=== PATIENT | male | born 1960 | race Caucasian/White ===

== ENCOUNTER → 2017-08-20 09:26 | Outpatient (CLI) | payer BC, SELFPAY | PROVIDERS: Visit Provider Podiatrist | DX: M79.671 Pain in right foot (principal); M79.672 Pain in left foot ==

== ENCOUNTER → 2017-09-25 11:26 | Outpatient (REF) | payer BC, SELFPAY ==
[2017-09-27 14:46] LABS: PSA, Free 0.26 ng/mL; Prostate Specific Ag 1.5 ng/mL (0.0-4.0)
== END ==
LOC: LAB 11:26
PROVIDERS: Visit Provider Emergency Medicine
DX: N40.0 Benign prostatic hyperplasia without lower urinary tract symptoms (principal)
CPT/HCPCS: 84153; 84154

== ENCOUNTER → 2018-04-25 09:44 | Outpatient (CLI) | payer BC, SELFPAY ==
--- NOTE | 2018-04-25 09:47 | US_ITS ---
US Arterial Ankle Brachial Ind History: ITS.REASON: claudication right leg pain, current smoker, claudication ORDERING PHYSICIAN: Mariano Cheng MD PATIENT AGE: 57 years TECHNIQUE: Segmental pressures obtained of both right and left leg. These are compared to brachial blood pressure to yield index at each level sampled including summary NEETU. The data sheets from the procedure are available in PACS FINDINGS Rest study only performed today No prior studies available for comparison. Blood pressures reported are in millimeters mercury. RIGHT LEG NEETU = .8. RIGHT LEG TBI=.5 Brachial BP: 163 Thigh BP: 117 Calf BP: 119 Ankle PT: 131 Ankle DP : 116 Digit =78 LEFT LEG NEETU = .9 LEFT LEG TBI= .5 Brachial BPD: 174 Thigh BP: 146 Calf BP: 146 Ankle PT:159 Ankle DP: 153 Digit = 82 Pulses and waveforms: Diminished waveforms impulses of the right leg IMPRESSION: 1. The right NEETU is slightly low at 0.8 indicating mild peripheral vascular disease. The left NEETU is within normal limits. 2. Low bilateral TBIs suggesting small vessel disease
== END ==
PROVIDERS: PCP Emergency Medicine; Visit Provider Internal Medicine
DX: I70.213 Atherosclerosis of native arteries of extremities with intermittent claudication, bilateral legs (principal)
CPT/HCPCS: 93922

== ENCOUNTER → 2018-05-17 06:21 | Outpatient (CLI) | payer BC, SELFPAY ==
--- NOTE | 2018-05-17 06:22 | NM_ITS ---
CARDIOLITE SPECT MYOCARDIAL PERFUSION SCAN, REST AND STRESS: EXERCISE STRESS [facility] REVIEW QGS EF AND WALL MOTION EVALUATION: QPS - PERFUSION EVALUATION HISTORY: sob..fatigue DOSE: 10.03 mCi technetium 99m mibi intravenously at rest followed by 30.7 mCi technetium 99m mibi following the intravenous ministration of 0.4 mg of Lexiscan. Resting blood pressure is 186/96. Stress blood pressure 171/66. FINDINGS: Ejection fraction is calculated to be 52%. Uniform myocardial activity at both stress and rest gated images calculated ejection fraction of 52% wall motion IMPRESSION: No scintigraphic evidence of Lexiscan-induced myocardial ischemia normal ejection fraction normal wall motion
--- NOTE | 2018-05-17 06:22 | XR_ITS ---
XR chest 2V HISTORY: Shortness of breath ITS.REASON: . ORDERING PHYSICIAN: Mariano Cheng MD PATIENT AGE: 57 years COMPARISON: None FINDINGS: Unremarkable heart size. Hyperinflation with attenuation of the peripheral pulmonary vessels consistent with COPD. Calcified granuloma is present in the left lower lobe. There is minimal blunting of the left CP angle. No acute bony anomalies. IMPRESSION: COPD with minimal blunting of left CP angle
--- NOTE | 2018-05-17 08:43 | HMH.ITSHM ---
Current Home Medications as stated by this patient Thomas Weller or treasury representative. [] gabapentin trazodone amiodarone albuterol fluticasone
[2018-05-17 10:50] VITALS: PULSE 79
== END ==
PROVIDERS: PCP Emergency Medicine; Visit Provider Internal Medicine
DX: I73.9 Peripheral vascular disease, unspecified (principal); R00.0 Tachycardia, unspecified; R06.00 Dyspnea, unspecified; R68.89 Other general symptoms and signs; R94.31 Abnormal electrocardiogram [ECG] [EKG]; Z79.899 Other long term (current) drug therapy
CPT/HCPCS: 71046; 78452; 93017; 93306; 94060; 94640; 94726; 94729; A9502; J2785

== ENCOUNTER → 2018-07-15 13:22 | Outpatient (CLI) | payer BC, SELFPAY | PROVIDERS: Visit Provider Emergency Medicine | DX: L98.9 Disorder of the skin and subcutaneous tissue, unspecified (principal) | CPT/HCPCS: 87070; 87077; 87186; 87205 ==

== ENCOUNTER → 2019-02-03 13:42 | Outpatient (CLI) | payer BC, SELFPAY ==
[2019-02-03 14:03] LABS: Basophils % 0.4 % (0.1-2.0); Eosinophils # 0.2 K/mm3 (0.0-0.4); Eosinophils % 2.3 % (0.1-12.0); Hematocrit 45.7 % (42.0-52.0); Hemoglobin 14.6 g/dL (14.1-18.0); Lymphocytes # 1.7 K/mm3 (0.7-4.5); Lymphocytes % 24.3 % (10-50); Mean Corpuscular HGB Conc 31.8 g/dL (31.8-35.4); Mean Corpuscular Hemoglobin 31.8 pg (27.0-31.2); Mean Corpuscular Volume 99.9 fl (80-94); Mean Platelet Volume 8.2 fl (7.4-10.4); Monocytes # 0.6 K/mm3 (0.1-1.0); Monocytes % 8.3 % (1.7-9.3); Neutrophils # 4.5 K/mm3 (1.8-7.8); Neutrophils % 64.7 % (37.0-80.0); Platelet Count 283 K/mm3 (142-424); Red Blood Count 4.58 M/mm3 (4.60-6.20); Red Cell Distribution Width 13.9 % (11.5-17.5); White Blood Count 6.9 K/mm3 (4.8-10.8)
[2019-02-03 15:01] LABS: Alanine Aminotransferase 23 U/L (12-78); Albumin Level 4.2 gm/dL (3.4-5.0); Albumin/Globulin Ratio 1.1 (1.1-1.8); Alkaline Phosphatase 58 U/L (46-116); Anion Gap 19.6 mEq/L (5-15); Aspartate Amino Transferase 23 U/L (15-37); Bilirubin,Total 0.4 mg/dL (0.2-1.0); Blood Urea Nitrogen 15 mg/dL (7-18); Calcium 9.5 mg/dL (8.5-10.1); Carbon Dioxide 24 mmol/L (21.0-32.0); Chloride 98 mmol/L (98-107); Chol/HDL Ratio 4.3 (1-3.5); Cholesterol 293 mg/dL (140-200); Estimated Glomerular Filt Rate 62 ml/min (>60); Free T4 (Free Thyroxine) 1.27 ng/dl (0.76-1.46); GFR (African American) 75 ML/MIN (>60); Glucose 75 mg/dL (74-106); HDL Cholesterol 68 mg/dL (27-67); LDL Cholesterol 191 mg/dL (0-130); Potassium 4.6 mmoL/L (3.5-5.1); Sodium 137 mmol/L (136-145); Thyroid Stimulating Hormone 1.55 uIU/ml (0.358-3.740); Total Protein,Serum 8.2 gm/dL (6.4-8.2); Triglycerides 170 mg/dL (30-200); VLDL Cholesterol 34 mg/dL (0-40)
== END ==
PROVIDERS: Visit Provider Emergency Medicine
DX: I10 Essential (primary) hypertension (principal)
CPT/HCPCS: 80053; 80061; 84439; 84443; 85025

== ENCOUNTER → 2019-03-28 13:24 | Outpatient (CLI) | payer BC, SELFPAY ==
[2019-03-28 15:27] LABS: Amphetamine/Metha Screen,Urine Negative ng/mL (<1000); Barbiturates Screen,Urine Negative ng/mL (<200); Benzodiazepines Screen,Urine Negative ng/mL (<200); Cannabinoid Screen,Urine Negative ng/mL (<50); Cocaine Screen,Urine Negative ng/mL (<300); Methadone Screen,Urine Negative ng/mL (<300); Opiate Screen,Urine Negative ng/mL (<300); Phencyclidine Screen,Urine Negative ng/mL (<25)
[2019-03-29 18:50] LABS: Vitamin B12 363 pg/mL (232-1245)
[2019-03-29 18:50] LABS: Folate 10.8 ng/mL (>3.0)
== END ==
PROVIDERS: Visit Provider Emergency Medicine
DX: M54.16 Radiculopathy, lumbar region (principal)
CPT/HCPCS: 80305; 82607; 82746

== ENCOUNTER → 2019-05-12 07:41 | Outpatient (CLI) | payer BC, SELFPAY ==
--- NOTE | 2019-05-12 07:43 | US_ITS ---
APPROVED REPORT Exam Type: Lower Extremity Segmental Pressures Digital Media Producer: Marlene Dudley RVT Indications Claudication: Bilaterally Current Smoker Risk Factors Hypertension Current Smoker Pressures/Indices Right Indices Left Indices Brachial 130.00 mmHg Brachial 126.00 mmHg Low Thigh 108.00 mmHg 0.83 Low Thigh 116.00 mmHg 0.89 Calf 92.00 mmHg 0.71 Calf 108.00 mmHg 0.83 Ankle(PT) 84.00 mmHg 0.65 Ankle(PT) 90.00 mmHg 0.69 Ankle(DP) 112.00 mmHg 0.86 Ankle(DP) 119.00 mmHg 0.92 Digit 51.00 mmHg 0.39 Digit 61.00 mmHg 0.47 Findings RT NEETU:0.65 LT NEETU:0.69 RT TBI:0.39 LT TBI:0.47 DECREASED WAVEFORMS RT THIGH AND ANKLE. DECREASED WAVEFORMS LT ANKLE. NORMAL PULSES BILATERALLY. Conclusion DECREASED WAVEFORMS RT THIGH AND ANKLE. DECREASED WAVEFORMS LT ANKLE. NORMAL PULSES BILATERALLY. Low NEETU bilaterally consistent with Moderate arerial disease Electronically signed by : Abisai Barnett MD 05/12/2019 17:05:10
--- NOTE | 2019-05-12 07:48 | CT_ITS ---
PROCEDURE: CT CHEST WO CON CLINICAL INDICATION: tobacco use and amio therapy Cough, current smoker, congestion, shortness of COMPARISON: CXR2V XR chest 2V from 05/17/2018 TECHNIQUE: Axial images obtained with sagittal and coronal reformats. All CT scans at the facility use one or more dose reduction, viz: automated exposure control, ma/kV adjustment per patient size (including targeted exams where dose is matched to indication, i.e. head), or iterative reconstruction technique. FINDINGS: There are coronary artery calcifications. Normal heart size. No mediastinal or hilar mass or adenopathy. Panlobular emphysema with COPD and scattered areas of scarring. Calcified granuloma is present in the left lower lobe. No suspicious pulmonary nodules are evident. No central obstructing lesions. There is some mild pulmonary fibrotic changes in the right upper lobe laterally and inferiorly. Scarring noted in the right lung base. There are degenerative changes in the thoracic spine with minimal loss of height anteriorly of T10 and to lesser degree at T11 probably chronic. IMPRESSION: 1. Cyst panlobular emphysema/COPD with scattered areas of scarring. 2. No suspicious pulmonary nodule apparent. No lobar consolidation or collapse Dictated by: Abisai Barnett MD 05/13/2019 12:44 Electronically signed by Abisai Barnett MD in [place] 05/13/2019 12:44
--- NOTE | 2019-05-12 07:48 | US_ITS ---
PROCEDURE: US ABD. AORTA SCREENING CLINICAL INDICATION: to rule out AAA Screening for abdominal aortic aneurysm COMPARISON: No exams were available for comparison FINDINGS: Normal caliber of the abdominal aorta measuring up to 2 cm. Unremarkable common iliacs. IMPRESSION: No evidence of abdominal aortic aneurysm Dictated by: Abisai Barnett MD 05/13/2019 06:59 Electronically signed by Abisai Barnett MD in [place] 05/13/2019 06:59
== END ==
PROVIDERS: PCP Emergency Medicine; Visit Provider Internal Medicine Cardiovascular Disease
DX: I73.9 Peripheral vascular disease, unspecified (principal); E78.5 Hyperlipidemia, unspecified; I10 Essential (primary) hypertension; J44.9 Chronic obstructive pulmonary disease, unspecified; R06.09 Other forms of dyspnea; Z72.0 Tobacco use
CPT/HCPCS: 71250; 76705; 93923

== ENCOUNTER → 2020-10-19 14:47 | Outpatient (CLI) | payer BC, SELFPAY ==
[2020-10-19 15:06] LABS: Alanine Aminotransferase 24 U/L (12-78); Albumin Level 4.8 g/dl (3.5-5.0); Albumin/Globulin Ratio 1.5 (1.1-1.8); Alkaline Phosphatase 69 U/L (38-126); Anion Gap 15.2 mEq/L (5-15); Aspartate Amino Transferase 29 U/L (17-59); Bilirubin,Total 0.9 mg/dl (0.2-1.3); Blood Urea Nitrogen 28 mg/dl (9-20); Calcium 9.5 mg/dl (8.4-10.2); Carbon Dioxide 21 mmol/L (22.0-30.0); Chloride 110 mmol/L (98-107); Chol/HDL Ratio 6.3 (1-3.5); Cholesterol 270 mg/dl (140-200); Estimated Glomerular Filt Rate 52 ml/min (>60); GFR (African American) 62 ML/MIN (>60); Globulin 3.2 g/dL (1.3-3.2); Glucose 92 mg/dl (74-100); HDL Cholesterol 43 mg/dl (40-60); Potassium 5.2 mmoL/L (3.5-5.1); Sodium 141 mmol/L (136-145); Triglycerides 484 mg/dl (30-150)
[2020-10-19 15:11] LABS: Basophils # 0.1 K/mm3 (0-0.2); Basophils % 0.7 % (0.1-2.0); Eosinophils # 0.3 K/mm3 (0.0-0.4); Eosinophils % 3.2 % (0.1-12.0); Hematocrit 48.7 % (42.0-52.0); Hemoglobin 15.5 g/dL (14.1-18.0); Lymphocytes # 2.2 K/mm3 (0.7-4.5); Lymphocytes % 25.9 % (10-50); Mean Corpuscular HGB Conc 31.9 g/dL (31.8-35.4); Mean Corpuscular Hemoglobin 30.6 pg (27.0-31.2); Mean Corpuscular Volume 95.8 fl (80-94); Mean Platelet Volume 8.7 fl (7.4-10.4); Monocytes # 0.7 K/mm3 (0.1-1.0); Monocytes % 8.1 % (1.7-9.3); Neutrophils # 5.2 K/mm3 (1.8-7.8); Neutrophils % 62.1 % (37.0-80.0); Platelet Count 264 K/mm3 (142-424); Red Blood Count 5.08 M/mm3 (4.60-6.20); Red Cell Distribution Width 13.2 % (11.5-17.5); White Blood Count 8.3 K/mm3 (4.8-10.8)
[2020-10-19 15:16] LABS: Direct LDL Cholesterol 138.23 mg/dL (100-129)
[2020-10-19 15:23] LABS: Free T4 (Free Thyroxine) 1.37 ng/dl (0.78-2.19)
[2020-10-19 15:38] LABS: Thyroid Stimulating Hormone 2.58 uIU/mL (0.465-4.68)
[2020-10-19 16:16] LABS: Prostate Specific Ag Screen 2.5 ng/ml (0.0-4.0)
== END ==
PROVIDERS: Visit Provider Emergency Medicine
DX: G62.9 Polyneuropathy, unspecified (principal); I10 Essential (primary) hypertension; E78.5 Hyperlipidemia, unspecified; J44.9 Chronic obstructive pulmonary disease, unspecified; E66.3 Overweight; Z68.30 Body mass index [BMI] 30.0-30.9, adult; F17.210 Nicotine dependence, cigarettes, uncomplicated; Z12.5 Encounter for screening for malignant neoplasm of prostate
CPT/HCPCS: 80053; 80061; 84439; 84443; 85025; G0103

== ENCOUNTER → 2021-01-14 09:51 | Outpatient (CLI) | payer BC, SELFPAY ==
--- NOTE | 2021-01-14 09:55 | US_ITS ---
APPROVED REPORT Exam Type: Lower Extremity Segmental Pressures Miniature Set Builder: Marlene Dudley RVT Indications Current Smoker CLAUDICATION Risk Factors History of PAD: Bilaterally Hypertension Hyperlipidemia Current Smoker Pressures/Indices Right Indices Left Indices Brachial 137.00 mmHg Brachial 142.00 mmHg Low Thigh 89.00 mmHg 0.63 Low Thigh 109.00 mmHg 0.77 Calf 76.00 mmHg 0.54 Calf 94.00 mmHg 0.66 Ankle(PT) 96.00 mmHg 0.68 Ankle(PT) 107.00 mmHg 0.75 Ankle(DP) 84.00 mmHg 0.59 Ankle(DP) 96.00 mmHg 0.68 Digit 67.00 mmHg 0.47 Digit 66.00 mmHg 0.46 Findings RT NEETU:0.68 LT NEETU:0.75 RT TBI:0.47 LT TBI:0.46 DAMPANED WAVEWFORMS BILATERAL DAMPANED PULSES BILATERAL LOW NEETU'S BILATERALLY CONSISTENT WITH MODERATE ARTERIAL DISEASE. Conclusion RT NEETU:0.68 LT NEETU:0.75 RT TBI:0.47 LT TBI:0.46 DAMPANED WAVEWFORMS BILATERAL DAMPANED PULSES BILATERAL LOW NEETU'S BILATERALLY CONSISTENT WITH MODERATE ARTERIAL DISEASE. Electronically signed by : Abisai Barnett MD 01/14/2021 14:21:02
== END ==
PROVIDERS: PCP Emergency Medicine; Visit Provider Emergency Medicine
DX: I73.9 Peripheral vascular disease, unspecified (principal)
CPT/HCPCS: 93923

== ENCOUNTER → 2021-02-08 18:59 | Outpatient (CLI) | payer BC, SELFPAY ==
[2021-02-08 20:49] LABS: Amphetamine/Metha Screen,Urine Negative ng/ml (<1000)
[2021-02-08 20:50] LABS: Barbiturates Screen,Urine Negative ng/ml (<200); Benzodiazepines Screen,Urine Negative ng/ml (<200)
[2021-02-08 20:51] LABS: Cannabinoid Screen,Urine Negative ng/ml (<50)
[2021-02-08 20:52] LABS: Cocaine Screen,Urine Negative ng/ml (<300); Methadone Screen,Urine Negative ng/ml (<300)
[2021-02-08 20:53] LABS: Opiate Screen,Urine Negative ng/ml (<300)
[2021-02-08 20:54] LABS: Phencyclidine Screen,Urine Negative ng/ml (<25)
== END ==
PROVIDERS: Visit Provider Emergency Medicine
DX: Z79.899 Other long term (current) drug therapy (principal)
CPT/HCPCS: 80305

== ENCOUNTER 2021-03-01 08:28 | Day surgery (SDC) | payer BC, SELFPAY ==
[2021-03-01] VITALS (14 sets, daily range): BP systolic 81–147; BP diastolic 47–90; PULSE 75–88; RESP 18–19; O2SAT 90–100; BMI 30.4
--- NOTE | 2021-03-01 08:39 | IR_ITS ---
APPROVED REPORT Patient Location: Outpatient Assembler Dc Field Yoke: DYLON Smith RT (R) PROCEDURES Right radial artery access Catheter placed in the right common iliac artery Right common iliac artery selective angiogram Catheter placed in left common iliac artery Left common iliac artery selective angiogram Bare-metal stent deployment in right common iliac artery extending into the right external iliac artery Catheter placement in the abdominal aorta Bilateral iliofemoral off INDICATION Peripheral artery disease, [place] claudication class III, Atherosclerosis of the right common and right external iliac artery, Abnormal NEETU Informed consent was obtained prior to the procedure. COMPLICATIONS NONE Estimated Blood Loss: LESS THAN 10 ML TECHNIQUE 1% lidocaine used to anesthetize the right anterior aspect of the right wrist. The right radial artery was accessed via the central technique and an arterial cocktail using 5000U heparin, 2.5 mg verapamil, 1mg lidocaine and 800mcg nitroglycerin into the right radial sheath intra-arterially. A PV multi curve catheter was then placed into the left common iliac artery via the right radial sheath and iliofemoral angiography was performed. This procedure was repeated in the right common iliac artery. At the end the diagnostic angiogram additional heparin was administered and a long 6 Turkmen Terumo sheath was placed in the proximal right common iliac artery. An 8 mm x 57 mm balloon mounted stent was deployed at 12 abel reducing the severe stenosis to 0%. Excellent angiographic results were obtained. At the end of the procedure the apparatus was pulled back to the distal abdominal aorta and bilateral iliofemoral runoff was performed. At the end of procedure the apparatus was removed the sheath was removed and hemostasis was achieved using TR banding patient was transferred the postop already in stable condition ANGIOGRAPHIC RESULTS The distal abdominal aorta has mild atheromatous plaque. The right common iliac artery is patent in the proximal segment and has a distal 80% stenosis which extends into the proximal right external iliac artery. The right internal iliac artery is patent. The right common femoral artery is widely patent. The right profunda femoris artery is patent. The right superficial femoral artery is widely patent. The right popliteal artery is widely patent. There appears to be three-vessel runoff below the knee. The distal vessels were not viewed however the proximal portion of the anterior posterior tibialis arteries and peroneal artery on the right side were visualized and patent The left common iliac artery is widely patent with mild 10 to 20% atheromatous plaque. The left internal iliac artery is patent. The left external iliac artery has 30 to 40% stenosis. The left common femoral artery is patent. The left profunda femoris artery is patent. Left superficial femoral artery is widely patent with mild atheromatous plaque at Marshal's canal. The left popliteal artery has mild atheromatous plaque. Below the knee there appears to be two-vessel runoff on the left side IMPRESSION Peripheral artery disease as described above Successful stenting of the distal right common iliac artery extending into the proximal right external iliac artery PLAN 1. Aspirin and Plavix followed by Xarelto 2.5 mg twice daily in the next 2 to 5 days after discharge 2. Physical therapy 3. LDL less than 55 4. Aggressive risk factor modification Electronically signed by : Mariano Cheng MD 03/09/2021 12:32:25
[2021-03-01 09:23] LABS: Coronavirus 19, PCR Not Detected (NotDetected); Influenza A, PCR Not Detected (NotDetected); Influenza B, PCR Not Detected (NotDetected)
[2021-03-01 09:26] LABS: Basophils # 0.1 K/mm3 (0-0.2); Basophils % 1.1 % (0.1-2.0); Eosinophils # 0.3 K/mm3 (0.0-0.4); Eosinophils % 3.1 % (0.1-12.0); Hematocrit 46.5 % (42.0-52.0); Hemoglobin 15.3 g/dL (14.1-18.0); Lymphocytes # 2.3 K/mm3 (0.7-4.5); Lymphocytes % 28.7 % (10-50); Mean Corpuscular HGB Conc 32.8 g/dL (31.8-35.4); Mean Corpuscular Hemoglobin 31.2 pg (27.0-31.2); Mean Corpuscular Volume 95.2 fl (80-94); Mean Platelet Volume 9.7 fl (7.4-10.4); Monocytes # 0.6 K/mm3 (0.1-1.0); Monocytes % 7.4 % (1.7-9.3); Neutrophils # 4.8 K/mm3 (1.8-7.8); Neutrophils % 59.7 % (37.0-80.0); Platelet Count 277 K/mm3 (142-424); Red Blood Count 4.88 M/mm3 (4.60-6.20); Red Cell Distribution Width 12.9 % (11.5-17.5); White Blood Count 8.1 K/mm3 (4.8-10.8)
[2021-03-01 09:34] LABS: Anion Gap 16.3 mEq/L (5-15); Blood Urea Nitrogen 18 mg/dl (9-20); Calcium 9.2 mg/dl (8.4-10.2); Carbon Dioxide 18 mmol/L (22.0-30.0); Chloride 106 mmol/L (98-107); Creatinine Clearance Estimated 59 mL/min (50-200); Estimated Glomerular Filt Rate 44 ml/min (>60); GFR (African American) 53 ML/MIN (>60); Glucose 93 mg/dl (74-100); Potassium 5.3 mmoL/L (3.5-5.1); Sodium 135 mmol/L (136-145)
[2021-03-01 14:11] LABS: CATHL Activated Clotting Time > 400 SEC (74-125)
--- NOTE | 2021-03-01 14:29 | HMH.PHACLD ---
Thomas Weller has received discharge medication counseling on the following medications: PLAVIX 75MG ASPIRIN 81MG SIMVASTATIN 20MG PATIENT ALREADY TAKING ASPIRIN AND SIMVASTATIN. COUNSELED ON PLAVIX. PATIENT RECEIVED PERIPHERAL STENT, THEREFORE PORTILLO/ARB AND BETA YARI ARE NOT NEEDED. PATIENT VERBALIZED UNDERSTANDING AND HAD NO QUESTIONS AT THIS TIME. -GENO CORRALES, PHARMD
== END 2021-03-01 14:26 | disposition home or self-care (01) ==
LOC: CATHLAB 08:30
PROVIDERS: PCP Emergency Medicine; Visit Provider Internal Medicine
DX: I70.223 Atherosclerosis of native arteries of extremities with rest pain, bilateral legs (principal); I48.91 Unspecified atrial fibrillation; I25.10 Atherosclerotic heart disease of native coronary artery without angina pectoris; I10 Essential (primary) hypertension; F17.210 Nicotine dependence, cigarettes, uncomplicated; Z79.01 Long term (current) use of anticoagulants; Z79.899 Other long term (current) drug therapy; I77.1 Stricture of artery; I70.0 Atherosclerosis of aorta; Z20.822 Contact with and (suspected) exposure to COVID-19
CPT/HCPCS: 36247; 37221; 75710; 80048; 85025; 85347; 99152; 99153; C1725; C1769; C1876; C9803; J1644; Q9966; U0003; U0005

== ENCOUNTER → 2021-04-20 10:19 | Outpatient (CLI) | payer BC, SELFPAY | PROVIDERS: PCP Emergency Medicine; Visit Provider Urology | DX: R06.00 Dyspnea, unspecified (principal); R68.89 Other general symptoms and signs; I73.9 Peripheral vascular disease, unspecified | CPT/HCPCS: 93306 ==

== ENCOUNTER → 2021-06-03 17:24 | Outpatient (CLI) | payer BC, SELFPAY ==
[2021-06-03 19:04] LABS: Amphetamine/Metha Screen,Urine Negative ng/ml (<1000); Barbiturates Screen,Urine Negative ng/ml (<200)
[2021-06-03 19:06] LABS: Benzodiazepines Screen,Urine Negative ng/ml (<200)
[2021-06-03 19:07] LABS: Cannabinoid Screen,Urine Negative ng/ml (<50)
[2021-06-03 19:08] LABS: Cocaine Screen,Urine Negative ng/ml (<300); Methadone Screen,Urine Negative ng/ml (<300)
[2021-06-03 19:09] LABS: Opiate Screen,Urine Negative ng/ml (<300)
[2021-06-03 19:10] LABS: Phencyclidine Screen,Urine Negative ng/ml (<25)
== END ==
PROVIDERS: Visit Provider Emergency Medicine
DX: Z79.899 Other long term (current) drug therapy (principal)
CPT/HCPCS: 80305

== ENCOUNTER → 2021-09-07 12:34 | Outpatient (CLI) | payer BC, SELFPAY ==
[2021-09-07 13:30] VITALS: PULSE 92; PULSE 95
--- NOTE | 2021-09-07 14:31 | CT_ITS ---
FINAL REPORT CLINICAL HISTORY: CURRENT SMOKER COMPARISON: May 12, 2019 FINDINGS: Low-Dose Chest CT CTDI vol (mGy): 2.90 DLP (mGy-cm): 105.51 Axial images were obtained from the lung apex to the mid abdomen by computed tomography. Low-dose protocol was utilized. FINDINGS: CHEST: There is no axillary adenopathy. There is no hilar or mediastinal adenopathy. The heart is proper size. There is no pericardial or pleural effusion. Limited images of the upper abdomen are unremarkable. Lung window images demonstrate no suspicious infiltrate or nodule. There is calcified granuloma in the left lower lobe. There are moderate changes of central lobular emphysema in the upper lobes. There is scarring at the right lung base. IMPRESSION: No suspicious infiltrate or nodule identified. S modifier: Moderate changes of centrilobular emphysema. Lung RADS category 1S. Recommend 12 month follow-up low-dose chest CT. Reviewed, Interpreted and Dictated by Floyd Dutta MD Transcribed by Mesha Bill Authenticated by Floyd Dutta MD on 09/07/2021 04:39:00 PM [facility]
== END ==
PROVIDERS: PCP Emergency Medicine; Visit Provider Internal Medicine Pulmonary Disease
DX: Z87.891 Personal history of nicotine dependence (principal); Z12.2 Encounter for screening for malignant neoplasm of respiratory organs; R06.00 Dyspnea, unspecified
CPT/HCPCS: 71271; 94060; 94618; 94640; 94727; 94729; 94762

== ENCOUNTER → 2021-11-30 07:04 | Outpatient (CLI) | payer BC, SELFPAY ==
[2021-11-29 20:01] LABS: Amphetamine/Metha Screen,Urine Negative ng/ml (<1000); Barbiturates Screen,Urine Negative ng/ml (<200)
[2021-11-29 20:03] LABS: Benzodiazepines Screen,Urine Negative ng/ml (<200)
[2021-11-29 20:04] LABS: Cannabinoid Screen,Urine Positive ng/ml (<50); Cocaine Screen,Urine Negative ng/ml (<300)
[2021-11-29 20:05] LABS: Methadone Screen,Urine Negative ng/ml (<300)
[2021-11-29 20:06] LABS: Opiate Screen,Urine Negative ng/ml (<300); Phencyclidine Screen,Urine Negative ng/ml (<25)
== END ==
PROVIDERS: PCP Emergency Medicine; Visit Provider Emergency Medicine
DX: G62.9 Polyneuropathy, unspecified (principal); M54.50 Low back pain, unspecified
CPT/HCPCS: 80305

== ENCOUNTER → 2021-12-28 09:49 | Outpatient (CLI) | payer BC, SELFPAY | PROVIDERS: PCP Emergency Medicine; Visit Provider Internal Medicine Gastroenterology | DX: Z01.812 Encounter for preprocedural laboratory examination (principal); Z20.822 Contact with and (suspected) exposure to COVID-19; Z12.11 Encounter for screening for malignant neoplasm of colon | CPT/HCPCS: C9803; U0003; U0005 ==

== ENCOUNTER 2021-12-29 09:24 | Day surgery (SDC) | payer BC, SELFPAY ==
[2021-12-27 10:17] VITALS: BMI 29.6
[2021-12-29] VITALS (7 sets, daily range): BP systolic 95–138; BP diastolic 56–85; PULSE 80–91; RESP 18–19; TEMP 36.4–36.6; O2SAT 92–98
--- NOTE | 2021-12-29 09:54 | P.PN_ITS ---
[facility] Anesthesia Checklist - Patient Identification Patient Identification: Arm Band - Structural Data Admitted From: Home Planned Operative Procedure/s: Colonoscopy Consent for Planned Operative Procedure(s) Verified: Yes - NPO Status Verified Time NPO: 00:00 - Airway Assessment C-Spine Mobility Assessed: Yes TMJ Mobility Assessed: Yes Dentition: Poor Dentition - Neurological Assessment Level of Consciousness: Awake Hx Seizures: No Numbness or tingling in extremities: No - Anesthesia Plan Anesthesia Risk discussed: Yes Anesthesia Plan: Verified ASA Class: III Anesthesia Type: MAC [facility] History I have reviewed the patient's past medical history: Yes Medical History: Reports:: Atrial Fibrillation, Chronic Obstructive Pulmonary Disease (COPD), Coronary Artery Disease, Gastroesophageal Reflux Disease(GERD), Hyperlipidemia, Hypertension Denies:: Cancer, Diabetes Mellitus Type 1, Diabetes Mellitus Type 2, Internal Pacemaker, MRSA, Seizures *Have you ever received a pneumonia vaccine?: Yes *Have you received a flu vaccine this season?: Yes Anesthesia experience/problems:: None Other Surgeries: Yes: No Previous Surgery, Cardiac Catheterization, Coronary Stent. No: Pacemaker Amputation: No Fractures: No - *Social History Last grade of school completed: 9th or 10th Smoking Status: Current every day smoker Tobacco Type: cigarettes # Packs/Day (cigarettes): 1 Alcohol Intake: former Alcohol Intake Frequency:: a few times a week Substance Use Type: denies use *Occupational Status:: disabled Housing: house Household Members: significant other *Travel in the last 8 weeks: None Family Hx:: Heart Attack
--- NOTE | 2021-12-29 10:23 | HMH.SCOPE ---
- Procedure: Date: 12/29/21 Patient Date of :: 1960 Procedure Performed:: Screening colonoscopy Indications:: At appropriate age for colon screening exam Performing Provider:: Yvette Colvin MD Referring Provider:: Giovanny Gardner Sedation:: Propofol Procedure:: After placing the patient in the left lateral decubitus position, the colonoscopy was gently inserted into the rectum and under direct visualization advanced to the cecum which was identified by transillumination in the right lower quadrant, identification of the ileocecal valve, appendiceal orifice, and cecal strap. Color, texture, mucosa, and anatomy of the colon were carefully examined with the scope. Findings:: Anal canal: normal Rectum: normal Sigmoid colon: normal without polyps or inflammatory changes Descending colon: normal without polyps or inflammatory changes Splenic flexure: normal Transverse colon: normal without polyps or inflammatory changes Hepatic flexure: normal Ascending colon: normal without polyps or inflammatory changes Cecum: normal Terminal ileum: not visualized Impression: Normal colonoscopy examination Recommendations:: Repeat examination in about TEN years or so, sooner if clinically indicated Complications:: None Estimated blood obtained (mL): 0
== END 2021-12-29 11:01 | disposition home or self-care (01) ==
LOC: OUTP 09:27
PROVIDERS: PCP Emergency Medicine; Visit Provider Internal Medicine Gastroenterology
PROC: 0DJD8ZZ Inspection of Lower Intestinal Tract, Via Natural or Artificial Opening Endoscopic (ICD-10-PCS; CPT 45378; principal; 2021-12-29 09:30)
DX: Z12.11 Encounter for screening for malignant neoplasm of colon (principal); I48.91 Unspecified atrial fibrillation; K21.9 Gastro-esophageal reflux disease without esophagitis; J44.9 Chronic obstructive pulmonary disease, unspecified; I25.10 Atherosclerotic heart disease of native coronary artery without angina pectoris; E78.5 Hyperlipidemia, unspecified; Z72.0 Tobacco use; Z79.899 Other long term (current) drug therapy
CPT/HCPCS: 45378

== ENCOUNTER → 2022-01-03 06:50 | Outpatient (CLI) | payer BC, SELFPAY ==
[2022-01-03 20:36] LABS: Amphetamine/Metha Screen,Urine Negative ng/ml (<1000)
[2022-01-03 20:38] LABS: Barbiturates Screen,Urine Negative ng/ml (<200)
[2022-01-03 20:39] LABS: Benzodiazepines Screen,Urine Negative ng/ml (<200); Cannabinoid Screen,Urine Negative ng/ml (<50)
[2022-01-03 20:40] LABS: Cocaine Screen,Urine Negative ng/ml (<300); Methadone Screen,Urine Negative ng/ml (<300)
[2022-01-03 20:41] LABS: Opiate Screen,Urine Negative ng/ml (<300)
[2022-01-03 20:42] LABS: Phencyclidine Screen,Urine Negative ng/ml (<25)
== END ==
PROVIDERS: PCP Emergency Medicine; Visit Provider Emergency Medicine
DX: M79.2 Neuralgia and neuritis, unspecified (principal)
CPT/HCPCS: 80305

== ENCOUNTER → 2022-03-01 14:00 | Outpatient (CLI) | payer BC, SELFPAY ==
[2022-03-01 19:14] LABS: Amphetamine/Metha Screen,Urine Negative ng/ml (<1000)
[2022-03-01 19:15] LABS: Barbiturates Screen,Urine Negative ng/ml (<200)
[2022-03-01 19:16] LABS: Benzodiazepines Screen,Urine Negative ng/ml (<200); Cannabinoid Screen,Urine Negative ng/ml (<50)
[2022-03-01 19:17] LABS: Cocaine Screen,Urine Negative ng/ml (<300)
[2022-03-01 19:18] LABS: Methadone Screen,Urine Negative ng/ml (<300); Opiate Screen,Urine Negative ng/ml (<300)
[2022-03-01 19:19] LABS: Phencyclidine Screen,Urine Negative ng/ml (<25)
== END ==
PROVIDERS: PCP Emergency Medicine; Visit Provider Emergency Medicine
DX: Z79.899 Other long term (current) drug therapy (principal)
CPT/HCPCS: 80305

== ENCOUNTER → 2022-04-28 15:28 | Outpatient (CLI) | payer BC, SELFPAY ==
[2022-04-28 19:59] LABS: Amphetamine/Metha Screen,Urine Negative ng/ml (<1000); Barbiturates Screen,Urine Negative ng/ml (<200)
[2022-04-28 20:01] LABS: Benzodiazepines Screen,Urine Negative ng/ml (<200)
[2022-04-28 20:02] LABS: Cannabinoid Screen,Urine Negative ng/ml (<50)
[2022-04-28 20:03] LABS: Cocaine Screen,Urine Negative ng/ml (<300); Methadone Screen,Urine Negative ng/ml (<300)
[2022-04-28 20:04] LABS: Opiate Screen,Urine Negative ng/ml (<300); Phencyclidine Screen,Urine Negative ng/ml (<25)
== END ==
PROVIDERS: PCP Emergency Medicine; Visit Provider Emergency Medicine
DX: Z79.899 Other long term (current) drug therapy (principal)
CPT/HCPCS: 80305

== ENCOUNTER → 2022-06-21 11:20 | Outpatient (CLI) | payer BC, SELFPAY ==
[2022-06-21 16:38] LABS: Amphetamine/Metha Screen,Urine Negative ng/ml (<1000); Barbiturates Screen,Urine Negative ng/ml (<200)
[2022-06-21 16:39] LABS: Benzodiazepines Screen,Urine Negative ng/ml (<200)
[2022-06-21 16:40] LABS: Cannabinoid Screen,Urine Negative ng/ml (<50); Cocaine Screen,Urine Negative ng/ml (<300)
[2022-06-21 16:41] LABS: Methadone Screen,Urine Negative ng/ml (<300)
[2022-06-21 16:43] LABS: Opiate Screen,Urine Negative ng/ml (<300); Phencyclidine Screen,Urine Negative ng/ml (<25)
== END ==
PROVIDERS: PCP Emergency Medicine; Visit Provider Emergency Medicine
DX: Z79.899 Other long term (current) drug therapy (principal)
CPT/HCPCS: 80305

== ENCOUNTER → 2022-08-16 23:00 | Outpatient (CLI) | payer BC, SELFPAY ==
[2022-08-16 19:26] LABS: Amphetamine/Metha Screen,Urine Negative ng/ml (<1000); Barbiturates Screen,Urine Negative ng/ml (<200)
[2022-08-16 19:27] LABS: Benzodiazepines Screen,Urine Negative ng/ml (<200)
[2022-08-16 19:28] LABS: Cannabinoid Screen,Urine Negative ng/ml (<50); Cocaine Screen,Urine Negative ng/ml (<300)
[2022-08-16 19:29] LABS: Methadone Screen,Urine Negative ng/ml (<300); Opiate Screen,Urine Negative ng/ml (<300)
[2022-08-16 19:30] LABS: Phencyclidine Screen,Urine Negative ng/ml (<25)
== END ==
PROVIDERS: PCP Emergency Medicine; Visit Provider Emergency Medicine
DX: Z79.899 Other long term (current) drug therapy (principal)
CPT/HCPCS: 80305

== ENCOUNTER → 2022-09-11 15:29 | Outpatient (CLI) | payer BC, SELFPAY ==
--- NOTE | 2022-09-11 15:42 | CT_ITS ---
FINAL REPORT CLINICAL HISTORY: lung cancer screening COMPARISON: 09/07/2021 FINDINGS: Low-Dose Chest CT Axial images were obtained from the lung apex to the mid abdomen by computed tomography. Low-dose protocol was utilized. CTDI vol (mGy): 2.90 DLP (mGy-cm): 101.34 There is no axillary adenopathy. There is no hilar or mediastinal adenopathy. The heart is proper size. There are mild coronary artery calcifications. There is no pericardial or pleural effusion. Lung window images demonstrate no suspicious infiltrate or nodule. There are moderate changes of emphysema with mild pulmonary scarring. There are multiple calcified granulomas. There is diffuse bronchial wall thickening consistent with bronchitis. Limited images of the upper abdomen are unremarkable. IMPRESSION: No suspicious infiltrate or nodule. Diffuse bronchial wall thickening consistent with bronchitis. Lung RADS category 1. Recommend 12 month follow-up low-dose chest CT. Reviewed, Interpreted and Dictated by Carlos Johnson III, MD Transcribed by Mesha Bill Authenticated and [facility]
== END ==
PROVIDERS: PCP Emergency Medicine; Visit Provider Internal Medicine Pulmonary Disease
DX: Z87.891 Personal history of nicotine dependence (principal); Z12.2 Encounter for screening for malignant neoplasm of respiratory organs
CPT/HCPCS: 71271

== ENCOUNTER → 2022-10-09 23:17 | Outpatient (CLI) | payer BC, SELFPAY ==
[2022-10-09 19:39] LABS: Amphetamine/Metha Screen,Urine Negative ng/ml (<1000); Barbiturates Screen,Urine Negative ng/ml (<200)
[2022-10-09 19:40] LABS: Benzodiazepines Screen,Urine Negative ng/ml (<200); Cannabinoid Screen,Urine Negative ng/ml (<50)
[2022-10-09 19:41] LABS: Cocaine Screen,Urine Negative ng/ml (<300)
[2022-10-09 19:42] LABS: Methadone Screen,Urine Negative ng/ml (<300); Opiate Screen,Urine Negative ng/ml (<300)
[2022-10-09 19:44] LABS: Phencyclidine Screen,Urine Negative ng/ml (<25)
== END ==
PROVIDERS: PCP Emergency Medicine; Visit Provider Emergency Medicine
DX: G89.29 Other chronic pain (principal)
CPT/HCPCS: 80305

== ENCOUNTER → 2022-12-06 11:00 | Outpatient (CLI) | payer BC, SELFPAY ==
[2022-12-06 18:54] LABS: Basophils # 0.1 K/mm3 (0-0.2); Basophils % 0.6 % (0.1-2.0); Eosinophils # 0.2 K/mm3 (0.0-0.4); Eosinophils % 2.5 % (0.1-12.0); Hematocrit 44.6 % (42.0-52.0); Hemoglobin 14.3 g/dL (14.1-18.0); Lymphocytes % 24.8 % (10-50); Mean Corpuscular Volume 90.6 fl (80-94); Mean Platelet Volume 8.6 fl (7.4-10.4); Monocytes # 0.7 K/mm3 (0.1-1.0); Monocytes % 8.6 % (1.7-9.3); Neutrophils # 5.2 K/mm3 (1.8-7.8); Neutrophils % 63.6 % (37.0-80.0); Platelet Count 322 K/mm3 (142-424); Red Blood Count 4.92 M/mm3 (4.60-6.20); Red Cell Distribution Width 12.8 % (11.5-17.5); White Blood Count 8.2 K/mm3 (4.8-10.8)
[2022-12-06 19:05] LABS: Alanine Aminotransferase 28 U/L (12-78); Albumin Level 4.5 g/dl (3.5-5.0); Albumin/Globulin Ratio 1.4 (1.1-1.8); Alkaline Phosphatase 43 U/L (38-126); Aspartate Amino Transferase 33 U/L (17-59); Bilirubin,Total 0.6 mg/dl (0.2-1.3); Blood Urea Nitrogen 33 mg/dl (9-20); Calcium 9.5 mg/dl (8.4-10.2); Carbon Dioxide 26 mmol/L (22.0-30.0); Chloride 103 mmol/L (98-107); Chol/HDL Ratio 4.2 (1-3.5); Cholesterol 258 mg/dl (140-200); Estimated Glomerular Filt Rate 27 ml/min (>60); GFR (African American) 33 ML/MIN (>60); Globulin 3.2 g/dL (1.3-3.2); Glucose 104 mg/dl (74-100); HDL Cholesterol 61 mg/dl (40-60); Sodium 135 mmol/L (136-145); Total Protein,Serum 7.7 g/dl (6.3-8.2); Triglycerides 281 mg/dl (30-150); VLDL Cholesterol 56 mg/dL (0-40)
[2022-12-06 19:16] LABS: Direct LDL Cholesterol 142.05 mg/dL (100-129)
[2022-12-06 19:20] LABS: 25-OH Vitamin D, Total 20.2 ng/mL (30-100)
[2022-12-06 19:38] LABS: Prostate Specific Ag Screen 2.3 ng/ml (0.0-4.0); Thyroid Stimulating Hormone 1.55 uIU/mL (0.465-4.68)
[2022-12-06 20:21] LABS: Amphetamine/Metha Screen,Urine Negative ng/ml (<1000)
[2022-12-06 20:22] LABS: Barbiturates Screen,Urine Negative ng/ml (<200)
[2022-12-06 20:23] LABS: Benzodiazepines Screen,Urine Negative ng/ml (<200); Cannabinoid Screen,Urine Negative ng/ml (<50)
[2022-12-06 20:24] LABS: Cocaine Screen,Urine Negative ng/ml (<300); Methadone Screen,Urine Negative ng/ml (<300)
[2022-12-06 20:25] LABS: Opiate Screen,Urine Negative ng/ml (<300)
[2022-12-06 20:26] LABS: Phencyclidine Screen,Urine Negative ng/ml (<25)
== END ==
PROVIDERS: PCP Emergency Medicine; Visit Provider Emergency Medicine
DX: I10 Essential (primary) hypertension (principal); F41.9 Anxiety disorder, unspecified; E55.9 Vitamin D deficiency, unspecified; E66.9 Obesity, unspecified; Z68.31 Body mass index [BMI] 31.0-31.9, adult; Z79.899 Other long term (current) drug therapy; Z12.5 Encounter for screening for malignant neoplasm of prostate
CPT/HCPCS: 80053; 80061; 80305; 82306; 84443; 85025; G0103

== ENCOUNTER → 2023-01-23 09:55 | Outpatient (CLI) | payer BC, SELFPAY ==
--- NOTE | 2023-01-23 10:16 | PC.NURSE ---
PFT Pre and Post Spirometry completed without incident. Albuterol 0.083% given via HHN, per protocol, Pt tolerated tx well.
== END ==
PROVIDERS: PCP Emergency Medicine; Visit Provider Internal Medicine Pulmonary Disease
DX: R06.02 Shortness of breath (principal)
CPT/HCPCS: 94060

== ENCOUNTER → 2023-02-05 23:46 | Outpatient (CLI) | payer BC, SELFPAY ==
[2023-02-05 18:50] LABS: Chloride 106 mmol/L (98-107); Potassium 4.6 mmoL/L (3.5-5.1); Sodium 137 mmol/L (136-145)
[2023-02-05 18:53] LABS: Anion Gap 16.6 mEq/L (5-15); Blood Urea Nitrogen 33 mg/dl (9-20); Calcium 9.7 mg/dl (8.4-10.2); Carbon Dioxide 19 mmol/L (22.0-30.0); Estimated Glomerular Filt Rate 26 ml/min (>60); GFR (African American) 32 ML/MIN (>60); Glucose 124 mg/dl (74-100)
== END ==
PROVIDERS: PCP Emergency Medicine; Visit Provider Emergency Medicine
DX: J44.9 Chronic obstructive pulmonary disease, unspecified (principal)
CPT/HCPCS: 80048

== ENCOUNTER → 2023-02-16 07:16 | Outpatient (CLI) | payer BC, SELFPAY ==
--- NOTE | 2023-02-16 07:20 | NM_ITS ---
APPROVED REPORT Exam: Nuclear Stress Test Indication: high bp..high cholerterol..tobacco use..soa..fatigue Patient Location: Outpatient Stress Tech: Destinee Mccartney [place] Tech:Thao Ruiz ARRT RT(R)(N) Ht: 5 ft 6 in Wt: 192 lbs HR: 80 bpm BP: 140/71 mmHg BSA: 1.97 m2 Rhythm: NSR TID: 1.13 BMI: 30.9 History: high bp..high cholerterol..tobacco use..soa..fatigue Procedure: Patient received 0.4 mg of intravenous Lexiscan, resting heart rate 80 bpm, resting blood pressure 140/71 mmHg, with Lexiscan maximum heart rate achieved was 105 bpm which is 85 % of the maximum predicted heart rate and blood pressure was 161/74 mmHg. With Lexiscan, patient denied any complaint of chest pain. Cardiac Stress and Resting SPECT Images: Cardiac Stress and Resting SPECT images were obtained using technetium 99m Myoview 31.8 mCi stress and 10.28 mCi at rest. Resting and stress imaging in both supine and prone positions demonstrate a medium sized, moderate, partially reversible perfusion defect in the mid to distal inferior and inferoseptal LV quesada extending towards the inferoapical region. Gated imaging demonstrates normal global LV systolic function. There is mild hypokinesis of the distal inferior LV wall. LVEF is calculated at 61% Conclusion: Medium sized, moderate, partially reversible perfusion defect in the mid to distal inferior and inferoseptal LV quesada extending towards the inferoapical region. Findings are suggestive of partial reversible ischemia. Gated imaging demonstrates normal global LV systolic function. There is mild hypokinesis of the distal inferior LV wall. LVEF is calculated at 61% Electronically signed by : Cassia Kennedy MD 02/24/2023 01:17:21
--- NOTE | 2023-02-16 08:39 | US_ITS ---
FINAL REPORT CLINICAL HISTORY: claudication, Hx Right ANDRZEJ stent-03/17, smoker, htn COMPARISON: None FINDINGS: ANKLE-BRACHIAL PRESSURE INDICES Pressure indices are as follows: RIGHT LOWER EXTREMITY: Ankle-brachial pressure index: 0.88 Comments: Mild to moderate disease LEFT LOWER EXTREMITY: Ankle-brachial pressure index: 0.74 Comments: Mild to moderate disease IMPRESSION: Mild to moderate obstructive peripheral vascular disease of the lower extremities, left greater than right. Reviewed, Interpreted and Dictated by Floyd Dutta MD Transcribed by Virginie Sarah Authenticated and [facility]
--- NOTE | 2023-02-16 09:41 | CA_ITS ---
APPROVED REPORT Exam: Pharmacologic Technologist: Destinee Chauhan, Ht: 4 ft 8 in Wt: 195 lbs BSA: 1.76 m2 HR: 84 bpm BP: 140/71 mmHg Rhythm: NSR Medical History Medications: Aspirin,,,,, Simvastatin,,,,, Gabapentin,,,,, ClonAZEPAM,,,,, XaRELTO,,,,, Albuterol,,,,, Trazodone,,,,, Flovent,,,,, StIOLto,,,,, Hydrocodone-Acetaminophen,,,,, Lisinopri/HCTZ,,,,, Hydroxyzine pamoate,,,,, Stress Test Details Test: LEXISCAN HR Resting HR: 80 bpm Max Heart Rate (APMHR): 157 bpm Max HR Achieved: 105 bpm Target HR (85% APMHR): 133 bpm % of APMHR: 67 Recovery HR: 88 bpm BP Resting BP: 140.0/71.0 mmHg Max BP: 161.0/74.0 mmHg Recovery BP: 149.0/75.0 mmHg ECG Resting ECG: NSR, rightward axis, NS S baseline 0.[address] depression, nonspecific T wave changes Stress ECG: No significant ST changes Arrhythmia: None Clinical Exercise duration: 04:00 min Highest Stage Achieved: Stress ECG Conclusion Symptoms: SOA, mild chest pressure, mold stomach cramps, head discomfort. Arrhythmias/Ectopy: None ST-T Changes: No significant ST changes Conclusion: Non-diagnostic Lexiscan stress due to baseline abnormalities. Myoview images reported separately. Test Summary REST . . . . . . . Resting REST 03:12 . . 80 . 140/ 71 . . Stage 1 01:00 . . 100 . . . . Stage 2 01:00 . . 102 . 147/ 76 . . Stage 3 01:00 . . 97 . 144/ 69 . . Stage 4 01:00 . . 97 . 149/ 72 . Stop exercise at 04:00 RECOVERY 01:00 . . 94 . . . . RECOVERY 02:00 . . 96 . . . . RECOVERY 03:00 . . 89 . 161/ 74 . . RECOVERY 03:41 . . 92 . 149/ 75 . . Electronically signed by : Cassia Kennedy MD 02/24/2023 01:12:43
== END ==
LOC: RAD 07:16
PROVIDERS: PCP Emergency Medicine; Visit Provider Internal Medicine
DX: R06.09 Other forms of dyspnea (principal); I70.213 Atherosclerosis of native arteries of extremities with intermittent claudication, bilateral legs; I10 Essential (primary) hypertension; E78.5 Hyperlipidemia, unspecified; J44.9 Chronic obstructive pulmonary disease, unspecified; Z72.0 Tobacco use
CPT/HCPCS: 78452; 93017; 93923; A9502; J2785

== ENCOUNTER → 2023-03-01 16:05 | Outpatient (CLI) | payer BC, SELFPAY ==
[2023-03-01 16:13] LABS: Microscopic, Urine URINE MICROSCOPIC (MICROSCOPIC)
[2023-03-01 17:43] LABS: Basophils # 0.1 K/mm3 (0-0.2); Basophils % 0.5 % (0.1-2.0); Eosinophils # 0.3 K/mm3 (0.0-0.4); Eosinophils % 3.1 % (0.1-12.0); Hematocrit 44.7 % (42.0-52.0); Hemoglobin 14.3 g/dL (14.1-18.0); Lymphocytes # 2.5 K/mm3 (0.7-4.5); Lymphocytes % 27.7 % (10-50); Mean Corpuscular HGB Conc 32.1 g/dL (31.8-35.4); Mean Corpuscular Hemoglobin 29.3 pg (27.0-31.2); Mean Corpuscular Volume 91.3 fl (80-94); Mean Platelet Volume 8.8 fl (7.4-10.4); Monocytes # 0.8 K/mm3 (0.1-1.0); Monocytes % 9.1 % (1.7-9.3); Neutrophils # 5.3 K/mm3 (1.8-7.8); Neutrophils % 59.6 % (37.0-80.0); Platelet Count 313 K/mm3 (142-424); Red Blood Count 4.89 M/mm3 (4.60-6.20); Red Cell Distribution Width 13.4 % (11.5-17.5); White Blood Count 8.9 K/mm3 (4.8-10.8)
[2023-03-01 17:51] LABS: Albumin Level 4.4 g/dl (3.5-5.0); Anion Gap 14.7 mEq/L (5-15); Blood Urea Nitrogen 34 mg/dl (9-20); Calcium 9.5 mg/dl (8.4-10.2); Carbon Dioxide 23 mmol/L (22.0-30.0); Chloride 110 mmol/L (98-107); Estimated Glomerular Filt Rate 25 ml/min (>60); GFR (African American) 30 ML/MIN (>60); Glucose 94 mg/dl (74-100); Phosphorous 4.1 mg/dl (2.5-4.5); Potassium 4.7 mmoL/L (3.5-5.1); Sodium 143 mmol/L (136-145)
[2023-03-01 18:00] LABS: Intact Parathyroid Hormone 44.9 pg/mL (7.5-53.5)
[2023-03-01 18:06] LABS: 25-OH Vitamin D, Total 28.8 ng/mL (30-100)
[2023-03-01 18:18] LABS: Appearance,Urine CLEAR (Clear); Bilirubin,Urine Negative (Negative); Blood, Urine Negative (Negative); Color,Urine YELLOW (Yellow); Glucose,Urine (UA) Negative (Negative); Ketones,Urine Negative (Negative); Leukocyte Esterase,Urine Negative (Negative); Nitrate,Urine Negative (Negative); Protein,Urine Negative (Negative); Urobilinogen,Urine 0.2 EU/dl (0.2)
[2023-03-01 18:28] LABS: Creatinine,Urine Random 117 mg/dL (Not Estab.)
[2023-03-01 19:04] LABS: Squamous Epithelial Cell,Urine Occasional #/hpf (0-5)
== END ==
PROVIDERS: Internal Medicine Nephrology; PCP Emergency Medicine; Visit Provider Internal Medicine
DX: R06.09 Other forms of dyspnea (principal); I10 Essential (primary) hypertension; E78.5 Hyperlipidemia, unspecified; E55.9 Vitamin D deficiency, unspecified
CPT/HCPCS: 36415; 80069; 81001; 82306; 82570; 83970; 84155; 85025

== ENCOUNTER → 2023-03-02 09:16 | Outpatient (CLI) | payer BC, SELFPAY ==
--- NOTE | 2023-03-02 09:19 | CA_ITS ---
APPROVED REPORT EXAM: Comprehensive 2D, Doppler, and color-flow Echocardiogram Portable Router Operator: DONY Bradley, RVS Ht: 5 ft 6 in Wt: 195lbs BSA: 1.98 BP: 127/70 mmHg Indications: Smoker, COPD,NICOLE, Mitral regurgitation, HTN Echo Enhancing Agent Comments: Poor acoustic windows due to lung impedence 2D Dimensions IVSd 1.23 cm LVEF (Visual) 84.70 % PWd 1.19 cm LA Volume 46.30 mL LVDd 4.82 cm LA Volume Index 22.80 mL/m2 (M/F) 16-34 LVDs 2.22 cm Aortic Root 3.19 cm Left Atrium 2.81 cm LVOT 2.00 cm (M/F) 1.5-2.5 M-Mode Dimensions RVDd 2.35 cm (0.9-2.6) LA Diam 2.78 cm (1.9-4.0) LVDd 6.19 cm (3.5-5.7) Ao Diam 3.51 cm (2.0-3.7) LVDs 4.44 cm (3.5-5.7) IVSd 1.11 cm (0.6-1.1) PWd 1.08 cm (0.6-1.1) EF (Teich) 53.60% EPSs 0.88 cm FS 28.30% EDV (Teich) 193.30 mL TAPSE 1.74 (<1.7) ESV (Teich) 89.60 mL LV Diastology E Decel Time 200.00 (160-240 msec) E/A Ratio 0.68 MED E' 7.40 (< 7 cm/sec) MED A' 13.50 cm/s E'/MED E' Ratio 9.04 (>14) LAT E' 9.70 (<10 cm/sec) LAT A' 12.80 cm/s E/LAT E' Ratio 6.90 (>14) Aortic Valve LVOT Max 94.00 (70-110 cm/s) LVOT VTI 19.78 cm AoV Peak Thomas. 129.00 (50-130 cm/s) AO Peak GR. 6.70 mmHg AO Mean GR. 3.60 (<5 mmHg) AO VTI 26.18 (18-25 cm) GABRIELA (VTI) 2.37 (2.5-4.5 cm2) Mitral Valve MV A Velocity 98.00 (40-130 cm/s) E/A Ratio 0.68 MV Decel. Time 200.00 (160-240 ms) MV Mean Gr. 1.70 (<2mmHg) Pulmonary Valve PV Peak Velocity 82.00 (50-150 cm/s) Left Ventricle The left ventricle is normal size. The left ventricular systolic function is normal. The left ventricular ejection fraction is within the normal range. There is normal left ventricular wall thickness. There is normal LV segmental wall motion. The left ventricular diastolic function is normal. LVEF is 55%. Right Ventricle The right ventricle is mildly dilated. The right ventricular systolic function is normal. Atria The left atrium size is normal. The right atrium size is normal. There is no Doppler evidence of interatrial shunt. Aortic Valve The aortic valve opens well. There is no aortic valvular stenosis. No aortic regurgitation is present. Mitral Valve The mitral valve is normal in structure. No evidence of mitral valve stenosis. Trace mitral regurgitation. Tricuspid Valve The tricuspid valve leaflets are thin and pliable. Trace tricuspid regurgitation. There is insufficient TR jet to estimate RVSP. Pulmonic Valve The pulmonary valve is normal in structure. Trace pulmonic regurgitation. Great Vessels The aortic root is normal in size. The ascending aorta is not well visualized. IVC is normal in size and collapses >50% with inspiration. Pericardium There is no pericardial effusion. Other Information Study Quality: Technically Difficult Conclusion This is a technically difficult study due to poor acoustic windows. Normal biventricular systolic function. No significant valvular stenosis or regurgitation. Due to discrepancy between LVEF on TTE versus LVEF on nuclear stress test, further evaluation for accuracy of LVEF on cardiac MRI (cardiomyopathy protocol) may be suggested. Electronically signed by : Cassia Kennedy MD 03/05/2023 23:47:11
== END ==
PROVIDERS: PCP Emergency Medicine; Visit Provider Emergency Medicine
DX: I10 Essential (primary) hypertension (principal); I73.9 Peripheral vascular disease, unspecified; R06.09 Other forms of dyspnea; Z72.0 Tobacco use
CPT/HCPCS: 93306

== ENCOUNTER → 2023-03-08 13:07 | Outpatient (CLI) | payer BC, SELFPAY | PROVIDERS: PCP Emergency Medicine; Visit Provider Physician Assistant | DX: I70.213 Atherosclerosis of native arteries of extremities with intermittent claudication, bilateral legs (principal) ==

== ENCOUNTER → 2023-03-15 15:07 | Outpatient (CLI) | payer BC, SELFPAY ==
[2023-03-15 15:58] LABS: Basophils # 0.1 K/mm3 (0-0.2); Basophils % 0.8 % (0.1-2.0); Eosinophils # 0.2 K/mm3 (0.0-0.4); Eosinophils % 2.5 % (0.1-12.0); Hematocrit 41.7 % (42.0-52.0); Hemoglobin 13.7 g/dL (14.1-18.0); Lymphocytes # 2.9 K/mm3 (0.7-4.5); Lymphocytes % 31.2 % (10-50); Mean Corpuscular HGB Conc 32.9 g/dL (31.8-35.4); Mean Corpuscular Hemoglobin 30.7 pg (27.0-31.2); Mean Corpuscular Volume 93.5 fl (80-94); Monocytes # 0.6 K/mm3 (0.1-1.0); Neutrophils # 5.5 K/mm3 (1.8-7.8); Neutrophils % 59.5 % (37.0-80.0); Platelet Count 299 K/mm3 (142-424); Red Blood Count 4.46 M/mm3 (4.60-6.20); Red Cell Distribution Width 13.3 % (11.5-17.5); White Blood Count 9.3 K/mm3 (4.8-10.8)
[2023-03-15 16:28] LABS: Anion Gap 16.3 mEq/L (5-15); Blood Urea Nitrogen 24 mg/dl (9-20); Calcium 9.5 mg/dl (8.4-10.2); Carbon Dioxide 23 mmol/L (22.0-30.0); Chloride 104 mmol/L (98-107); Estimated Glomerular Filt Rate 30 ml/min (>60); GFR (African American) 37 ML/MIN (>60); Glucose 114 mg/dl (74-100); Potassium 4.3 mmoL/L (3.5-5.1); Sodium 139 mmol/L (136-145)
[2023-03-15 16:44] LABS: Free T4 (Free Thyroxine) 1.48 ng/dl (0.78-2.19)
[2023-03-15 16:59] LABS: Thyroid Stimulating Hormone 1.83 uIU/mL (0.465-4.68)
== END ==
PROVIDERS: PCP Emergency Medicine; Visit Provider Internal Medicine
DX: E78.5 Hyperlipidemia, unspecified (principal); I10 Essential (primary) hypertension; I73.9 Peripheral vascular disease, unspecified; J44.9 Chronic obstructive pulmonary disease, unspecified; R06.00 Dyspnea, unspecified; Z72.0 Tobacco use; R94.30 Abnormal result of cardiovascular function study, unspecified
CPT/HCPCS: 36415; 80048; 84439; 84443; 85025

== ENCOUNTER 2023-03-22 07:00 | Outpatient (CLI) | payer BC, SELFPAY ==
[2023-03-22] VITALS (9 sets, daily range): BP systolic 110–159; BP diastolic 65–88; PULSE 66–74; RESP 16–20; TEMP 36.2; O2SAT 96–98; BMI 30.9
--- NOTE | 2023-03-22 07:08 | CT_ITS ---
APPROVED REPORT Credit Assessment Analyst: CLINICAL INDICATION Chest Pain TECHNIQUE Image Acquisition: A 128 slice MDCT scanner ([employer] View) was used for data acquisition. A noncontrast coronary calcium scan was performed. A CT attenuation threshold of 130 Hounsfield units (HU) was used for the detection of calcium in contiguous voxels of 1 sq mm in area to be counted as individual lesions. Bolus tracking in the ascending aorta with a threshold of 180 HU was performed. Immediately afterwards, ECG synchronized cardiac CT was then performed from the cardiac base to apex using retrospective gating with ECG tube current modulation. A total of 85 mL of Isovue 370 mg/mL contrast medium was administered at 5 mL/sec followed by a saline flush using a biphasic injection protocol. A tube voltage of 120 KVp was used. The patient received the following medications prior to the cardiac CT. 100 mg of oral metoprolol 0.8 mg of sublingual nitroglycerin The average heart rate at the time of acquisition was 62 bpm and regular. Image Reconstruction Transaxial images were reconstructed at 0.67 mm slide thickness. Data was reviewed interactively on an advanced workstation capable of 2 and 3-dimensional displays in all conventional reconstruction formats, including multiplanar reformations, maximum intensity projections, curved multiplanar reformations, and volume rendered reconstructions. When applicable, selected routine images describing the relevant coronary anatomy and pathology were saved and sent to PACS. Complications None Technical Quality Overall image quality was suboptimal. Coronary artery opacification was suboptimal due to persistent opacification of the venous system. Total DLP (Dose-Length Product) is 1497.6 mGy-cm. The reported value represents the total of one or more individual components during the CT acquisition of this date and at this time, and as such, the same value may appear in more than one CT report depending on the interpreting/reporting physicians. COMPARISON None FINDINGS CT Coronary Calcium Scoring LMA (Left Main Artery) = 177 LAD (Left Anterior Descending) = 33 LCX (Left Coronary Circumflex) = 98 RCA (Right Coronary Artery) = 272 Total Calcium Score = 580 using the AJ-130 method. The observed calcium score of 580 is at 97th percentile for subjects of the same age, sex, and race/ethnicity. The interpretation of the calcium heart score is based on the following continuum*: 0 = no calcified plaque detected (risk of coronary artery disease is very low ??? less than 5%) 1-10 = calcium detected in extremely minimal levels (risk of coronary diseases is still low ??? less than 10%) 11-100 = mild levels of plaque detected with certainty (mild or minimal narrowing of heart arteries is likely) 101-400 = definite,at least moderate levels of plaque detected (relatively high risk of a heart attack within 3-5 years) >401-999 = extensive levels of plaque detected (high risk of heart attack, high levels of vascular disease are present, high likelihood of at least one significant coronary narrowing) *The calcium heart score quantifies the burden of coronary calcification/plaque in the coronary arteries. The calcium heart score is not able to evaluate the presence or burden of non-calcified (i.e. soft) plaque. There is also identifiable calcification in the aortic valve, mitral annulus, and ascending and descending aorta. Coronary CT Angiography Coronaries have normal origin and proximal course. The coronary arterial system is right dominant. Note: Stenosis is reported as maximum percentage diameter stenosis. Quantitative Stenosis Grading: Left Main (LM): The left main originates normally from the left sinus of Valsalva.
[2023-03-22 08:08] LABS: Chloride 101 mmol/L (98-107); Potassium 4.3 mmoL/L (3.5-5.1); Sodium 136 mmol/L (136-145)
[2023-03-22 08:11] LABS: Anion Gap 14.3 mEq/L (5-15); Blood Urea Nitrogen 33 mg/dl (9-20); Calcium 9.2 mg/dl (8.4-10.2); Carbon Dioxide 25 mmol/L (22.0-30.0); Creatinine Clearance Estimated 44 mL/min (50-200); Estimated Glomerular Filt Rate 32 ml/min (>60); GFR (African American) 39 ML/MIN (>60); Glucose 99 mg/dl (74-100)
--- NOTE | 2023-03-22 08:29 | PC.NURSE ---
Notified Marlene in Radiology of pt's GFR results. She states that, according to their protocols,we will still be able to do procedure after pt recieves 250ml bolus of NS before and after procedure. NS infused as directed.
--- NOTE | 2023-03-22 09:35 | PC.NURSE ---
POST NITRO 110/65
--- NOTE | 2023-03-22 10:02 | PC.NURSE ---
pt taken to post-op for recovery, vss. report to dayron gallardo rn
--- NOTE | 2023-03-22 10:24 | PC.NURSE ---
1025- 250ml NS infused as directed per Dr. Kennedy post CTA.
== END 2023-03-22 11:02 | disposition home or self-care (01) ==
PROVIDERS: PCP Emergency Medicine; Visit Provider Internal Medicine
DX: R06.09 Other forms of dyspnea (principal); R94.30 Abnormal result of cardiovascular function study, unspecified; I10 Essential (primary) hypertension; I73.9 Peripheral vascular disease, unspecified
CPT/HCPCS: 75574; 80048; Q9967

== ENCOUNTER 2023-03-26 12:20 | Observation (INO) | payer BC, SELFPAY ==
[2023-03-26] VITALS (19 sets, daily range): BP systolic 113–171; BP diastolic 40–93; PULSE 60–82; RESP 16–20; TEMP 36.3–36.6; O2SAT 95–100; BMI 31.6; BMI 29.2
--- NOTE | 2023-03-26 07:12 | IR_ITS ---
APPROVED REPORT Patient Location: Outpatient PROCEDURES Selective coronary angiogram Drug-eluting stent deployment to the ostial proximal mid and distal dominant right coronary Drug-eluting stent deployment to the posterolateral ventricular branch Intravascular ultrasound to the left main artery INDICATION High risk abnormal Myoview, Coronary artery disease, Angiographic left main ambiguity Informed consent was obtained prior to the procedure. COMPLICATIONS None Estimated Blood Loss: Less than 10 mls TECHNIQUE One percent lidocaine used to anesthetize the right anterior aspect of the wrist. The right radial artery was accessed via the Seldinger technique. A 6 [place] sheath was placed in the right radial artery. 2.5 mg of Verapamil, 800 mcg of nitroglycerin, 1mg Lidocaine and 5000 U Heparin were given through the arterial sheath. The papa catheter was also used to perform selective coronary angiography. At the end the diagnostic angiogram therapeutic heparin was administered giving a therapeutic ACT and the guide catheter was placed in the right coronary artery followed by Choice PT extra-support wire. A 3.5 x 38 mm Range frontier stent was deployed in the mid to distal right coronary artery at 20 abel reducing the stenosis. An additional 3.5 x 26 mm Blu frontier stent was then placed proximal to the first stent extending back into the proximal segment of the right coronary artery yet still overlapping and deployed at 20 and then 24 abel. An additional 2.5 x 26 mm Blu frontier stent was placed distal to the for stent that was placed due to an angiographic identified dissection. This was placed distal to the for stent placed yet still overlapping it and deployed at 16 abel. The balloon was brought back and deployed at 22 abel between the 2 in order to mesh the stents. Following this an additional 2.75 x 22 mm Range frontier stent was then placed in the posterior lateral ventricular branch and deployed at 18 abel reducing the stenosis to 0%. A 4 mm x 15 mm noncompliant balloon was placed in the ostial proximal segment of the right coronary artery and deployed at 24 abel to further post dilate. MAXIMO-3 flow was present before and after the procedure down both the right coronary artery and the posterior lateral ventricular branch following this the guide catheter was placed in left main artery and the Choice PT extra-support wire was placed in the LAD with the intravascular ultrasound probe then advanced to the left main artery. This did not show severe ostial stenosis and the MLA was greater than 6.5 mm??? in the left main artery. At this point the apparatus was removed the sheath was removed and hemostasis was achieved using TR banding patient was transferred to the postop holding in stable condition ANGIOGRAPHIC RESULTS The left main artery Has an ostial 30% stenosis The left anterior descending artery Has a proximal 40% stenosis followed by an additional eccentric 40% stenosis with additional 40% mid vessel stenoses. The circumflex artery Is nondominant and proximally normal. The first obtuse marginal artery has an ostial 60% stenosis however the vessel is 1.75 mm in diameter. The remaining obtuse marginal arteries are patent The right coronary artery Is a large dominant vessel and has a proximal 50% stenosis with a mid vessel 70% stenosis followed by calcified 70 and 80% distal stenoses. A large posterior lateral branch has a proximal 70% stenosis. The JAIME ventriculogram reveals Not performed The left ventricular end-diastolic pressure Not measured IMPRESSION Severe single-vessel disease involving the right coronary artery which extended into the posterior lateral branch Successful reconstruction of the dominant right coronary artery severe disease reduced to 0% wi
[2023-03-26 12:00] LABS: CATHL Activated Clotting Time 372 SEC (74-125)
--- NOTE | 2023-03-26 12:52 | PC.NURSE ---
pt arrived to floor, pt alert and oriented. radial wrist band in place. no drainage noted.
--- NOTE | 2023-03-26 14:15 | EXP.CARD.CON ---
History of Present Illness History of Present Illness Consult date: 03/26/23 Requesting physician: Thomas Hutchinson Consult reason: known to you Chief complaint: CAD, s/p coronary stenting, CKD Additional Medical History:: 1. Peripheral arterial disease A. Stenting of the right common iliac into the proximal right external iliac artery, 03/09/2021 B. Aspirin and Xarelto therapy 2. Chronic tobacco use A. COPD and KIMBERLEE overlap syndrome B. PFTs, 08/2021, moderate obstructive lung disease with ratio at 44 and FEV1 at 52% predicted, 1.67 L. Significant reversibility noted at 17% and 240 mL. No restriction noted. Moderately reduced DLCO at 47% predicted. 6-minute walk on room air, 510 feet with no desaturation less than 89%. C. PFTs, 01/25/2023, moderate obstructive lung disease noted based on V1 VC ratio at 46, FEV1 at 55% predicted, 1.62 L. Significant airway reversibility noted in FEV1 at 27% predicted, 3.340 cc on the spirometry testing with bronchodilation. No evidence of restriction based on normal FVC at 90% predicted, 2.43 L 3. Hypertension A. Echocardiogram, 03/2021, EF 55-60% with no regional WMA. Diastolic function is normal. RV function normal. Unable to calculate RVSP but PAP is likely elevated. 4. History of paroxysmal atrial fibrillation A. History of amiodarone use 5. Coronary artery disease A. Schuyler Myoview, 02/16/2023, medium size, moderate, partially reversible perfusion defect in the mid to distal inferior and inferoseptal LV quesada extending towards the inferoapical region. EF 61% mild distal inferior hypokinesis. B. CCTA, 03/22/2023, flow-limiting atherosclerosis of the LAD and RCA segments. Coronary calcium score 580. C. Cardiac catheterization, 03/26/2023, severe single-vessel disease of the RCA extending into the posterolateral branch successfully stented with 3 CORAL in the RCA and 1 CORAL in the posterolateral branch. 6. Chronic kidney disease, stage III A. Creatinine 2.1 and GFR 32 on 03/22/2023 History of present illness: 62-year-old white male admitted post cardiac catheterization with drug-eluting stent placement x4 to the RCA/PLVB arteries for IV fluids in the setting of chronic kidney disease, stage III. Patient denies any chest pain, pressure or tightness. The plan will be for IV fluids overnight and if renal function is stable tomorrow then discharge home. Patient has peripheral arterial disease that we will be addressed in 2 to 4 weeks with angiogram and possible stenting at that time showed his renal function remained stable [facility] Disclaimer: The information contained in this section may have been updated after the patient was seen, as this information can be updated by other users. 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 PAD (peripheral artery disease) Pneumonia Screening for lung cancer Sleep apnea Smoking greater than 30 pack years Tobacco abuse counseling Tobacco abuse disorder Surgical History (Updated 03/26/23 @ 14:34 by RAMESH Smith) History of cardiac cath History of colonoscopy History of coronary artery stent placement Family History Other Cancer Diabetes Social History (Updated 03/26/23 @ 09:52 by Ayanna Combs RN) Smoking Status: Current every day smoker tobacco type: cigarettes packs per day: 1 alcohol intake: former substance use type: denies use current occupational status: unemployed Travel in the last 8 weeks: Inside the [place] household members: significant other housing:
[2023-03-26 14:32] LABS: Chloride 110 mmol/L (98-107); Sodium 143 mmol/L (136-145)
[2023-03-26 14:35] LABS: Basophils # 0.1 K/mm3 (0-0.2); Basophils % 0.6 % (0.1-2.0); Blood Urea Nitrogen 20 mg/dl (9-20); Carbon Dioxide 25 mmol/L (22.0-30.0); Creatinine Clearance Estimated 48 mL/min (50-200); Eosinophils # 0.2 K/mm3 (0.0-0.4); Eosinophils % 2.4 % (0.1-12.0); Estimated Glomerular Filt Rate 34 ml/min (>60); GFR (African American) 41 ML/MIN (>60); Hematocrit 40.3 % (42.0-52.0); Hemoglobin 13.3 g/dL (14.1-18.0); Lymphocytes # 2.3 K/mm3 (0.7-4.5); Lymphocytes % 30.1 % (10-50); Mean Corpuscular Hemoglobin 30.9 pg (27.0-31.2); Mean Corpuscular Volume 93.6 fl (80-94); Mean Platelet Volume 8.5 fl (7.4-10.4); Monocytes # 0.3 K/mm3 (0.1-1.0); Neutrophils # 4.7 K/mm3 (1.8-7.8); Neutrophils % 62.9 % (37.0-80.0); Platelet Count 253 K/mm3 (142-424); Red Cell Distribution Width 13.3 % (11.5-17.5); White Blood Count 7.5 K/mm3 (4.8-10.8)
[2023-03-26 14:36] LABS: Calcium 8.6 mg/dl (8.4-10.2); Glucose 127 mg/dl (74-100)
[2023-03-26 14:38] LABS: Prothrombin Time 12.8 seconds (10.1-12.5)
--- NOTE | 2023-03-26 15:00 | EXP.HP ---
History of Present Illness *Admission Date: 03/26/23 *Reason for visit:: abnormal stress test, CKD *History of present illness: Mr. Brasher is a 62-year-old male with history of hypertension, CAD, CKD, obesity, tobacco use disorder, COPD who presented to the [facility] as an outpatient for elective cardiac catheterization. Status post cath with drug-eluting stent placement x4 to the RCA. Has chronic kidney disease, creatinine 2.1 today. Given severity of disease and contrast load, cardiology requested admission for gentle hydration and monitoring overnight. Medicine agreed to admit. He had an abnormal stress test that led to his heart cath today. Denies any shortness of breath, chest pain, nausea, vomiting, diarrhea, confusion. On my evaluation, patient has no complaints. Tracelet still in place on right wrist [facility] Disclaimer: The information contained in this section may have been updated after the patient was seen, as this information can be updated by other users. 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 PAD (peripheral artery disease) Pneumonia Screening for lung cancer Sleep apnea Smoking greater than 30 pack years Tobacco abuse counseling Tobacco abuse disorder Surgical History History of cardiac cath History of colonoscopy History of coronary artery stent placement Family History Diabetes Cancer Social History Smoking Status: Current every day smoker tobacco type: cigarettes packs per day: 1 alcohol intake: former substance use type: denies use current occupational status: unemployed Travel in the last 8 weeks: Inside the [place] household members: significant other housing: house current occupational exposures/hazards: No caffeine: Yes Review of Systems Review of Systems Review of systems (narrative): 14 point review of systems performed, pertinent positives and negatives as per HPI Meds Home Medications and Allergies Home Medications Medication Instructions Recorded Confirmed Type nicotine (polacrilex) 2 mg gum 2 mg buccal Q2H PRN nicotine 03/14/22 03/26/23 Rx cravings #396 ea lisinopril 20 1 tab PO DAILY bp #90 tabs 07/24/22 03/26/23 Rx mg-hydrochlorothiazide 12.5 mg tablet diltiazem HCl 120 mg 120 mg PO DAILY 10/09/22 03/26/23 History capsule,extended release 24 hr albuterol sulfate 90 mcg/actuation See Rx Instructions .Route 12/04/22 03/26/23 Rx aerosol inhaler (Ventolin HFA) .COMPLEX #18 grams fluticasone propionate 110 1 puff inhalation BID 90 days #12 01/23/23 03/26/23 Rx mcg/actuation HFA aerosol inhaler grams (Flovent HFA) clonazepam 0.5 mg tablet (Klonopin) 0.5 mg PO TID #90 tabs 02/05/23 03/26/23 Rx gabapentin 800 mg tablet 800 mg PO BID pain #60 tabs 02/05/23 03/26/23 Rx hydrocodone 10 mg-acetaminophen 1 tab PO TID Pain #90 tabs 02/05/23 03/26/23 Rx 325 mg tablet rivaroxaban 2.5 mg tablet (Xarelto) 2.5 mg PO BID #60 tabs 03/15/23 03/26/23 Rx fenofibrate nanocrystallized 145 145 mg PO DAILY 03/22/23 03/26/23 History mg tablet hydroxyzine pamoate 25 mg capsule 25 mg PO BIDP PRN Anxiety 03/22/23 03/26/23 History simvastatin 20 mg tablet 20 mg PO DAILY 03/22/23 03/26/23 History aspirin 81 mg tablet,delayed 81 mg PO DAILY 03/26/23 03/26/23 History release ipratropium 0.5 mg-albuterol 3 mg 3 ml inhalation QID PRN Shortness 03/26/23 03/26/23 History (2.5 mg base)/3 mL nebulization Of Breath s
--- NOTE | 2023-03-26 15:30 | HMH.PHAINT1 ---
Pharmacy Intervention Comments: HOME MEDICATION LIST VERIFIED USING LIST FROM OUTPATIENT PHARMACY
[2023-03-27] VITALS: BP 100/51; PULSE 60; PULSE 74; RESP 18; TEMP 36.8; O2SAT 96
[2023-03-27 02:00] VITALS: BP 100/51; PULSE 74; RESP 18; TEMP 36.8; O2SAT 96
[2023-03-27 04:00] VITALS: BP 123/79; PULSE 80; PULSE 82; RESP 18; TEMP 36.7; O2SAT 93; BMI 29.8
--- NOTE | 2023-03-27 05:26 | PC.NURSE ---
Patient slept intermittently throughout shift. Patient has been ambulating to bathroom with standby assist to void. Patient has voiced no c/o of pain or SOA. Right radial site has dressing in place from cath. Dressing is C/D/I. Call light within reach.
[2023-03-27 06:18] VITALS: O2SAT 94
[2023-03-27 06:43] LABS: Basophils # 0.1 K/mm3 (0-0.2); Basophils % 0.7 % (0.1-2.0); Eosinophils # 0.4 K/mm3 (0.0-0.4); Eosinophils % 4.3 % (0.1-12.0); Hematocrit 40.9 % (42.0-52.0); Hemoglobin 13.3 g/dL (14.1-18.0); Lymphocytes # 2.5 K/mm3 (0.7-4.5); Lymphocytes % 30.3 % (10-50); Mean Corpuscular HGB Conc 32.6 g/dL (31.8-35.4); Mean Corpuscular Hemoglobin 30.8 pg (27.0-31.2); Mean Corpuscular Volume 94.7 fl (80-94); Mean Platelet Volume 7.9 fl (7.4-10.4); Monocytes # 0.6 K/mm3 (0.1-1.0); Neutrophils # 4.7 K/mm3 (1.8-7.8); Neutrophils % 57.8 % (37.0-80.0); Platelet Count 237 K/mm3 (142-424); Red Blood Count 4.32 M/mm3 (4.60-6.20); Red Cell Distribution Width 13.4 % (11.5-17.5); White Blood Count 8.1 K/mm3 (4.8-10.8)
[2023-03-27 06:50] LABS: Chloride 111 mmol/L (98-107); Sodium 143 mmol/L (136-145)
[2023-03-27 06:51] LABS: Potassium 4.4 mmoL/L (3.5-5.1)
[2023-03-27 06:53] LABS: Alanine Aminotransferase 28 U/L (12-78); Albumin Level 4.1 g/dl (3.5-5.0); Albumin/Globulin Ratio 1.4 (1.1-1.8); Alkaline Phosphatase 36 U/L (38-126); Anion Gap 10.4 mEq/L (5-15); Aspartate Amino Transferase 37 U/L (17-59); Bilirubin,Total 0.4 mg/dl (0.2-1.3); Blood Urea Nitrogen 18 mg/dl (9-20); Calcium 8.5 mg/dl (8.4-10.2); Carbon Dioxide 26 mmol/L (22.0-30.0); Cholesterol 205 mg/dl (140-200); Creatinine Clearance Estimated 42 mL/min (50-200); Estimated Glomerular Filt Rate 30 ml/min (>60); GFR (African American) 37 ML/MIN (>60); Glucose 110 mg/dl (74-100); Total Protein,Serum 7.1 g/dl (6.3-8.2); Triglycerides 184 mg/dl (30-150); VLDL Cholesterol 37 mg/dL (0-40)
[2023-03-27 06:54] LABS: Chol/HDL Ratio 6.2 (1-3.5); HDL Cholesterol 33 mg/dl (40-60); Magnesium 1.4 mg/dl (1.6-2.3)
[2023-03-27 07:05] LABS: Direct LDL Cholesterol 126.64 mg/dL (100-129)
[2023-03-27 07:33] VITALS: BP 149/79; PULSE 87; RESP 18; TEMP 36.8; O2SAT 93
[2023-03-27 08:00] VITALS: PULSE 83; O2SAT 95
--- NOTE | 2023-03-27 09:48 | EXP.CARD.PN ---
Subjective Subjective Date: 03/27/23 Time: 09:49 Principal diagnosis: CAD, CKD Interval history: 62-year-old white male in bed in no acute distress. No complaints overnight. Exam Data for Last 24 hours Vital signs and Labs for Last 24 Hours: Temp Pulse Resp BP Pulse Ox O2 Del Method 98.2 F 87 18 149/79 H 95 Room Air 03/27/23 07:33 03/27/23 07:33 03/27/23 07:33 03/27/23 07:33 03/27/23 08:00 03/27/23 08:00 Laboratory Results - last 24 hr 03/26/23 10:46: Activated Clotting Time 372 H* 03/26/23 14:03: WBC 7.5, RBC 4.30 L, Hgb 13.3 L, Hct 40.3 L, MCV 93.6, MCH 30.9, MCHC 33.0, RDW 13.3, Plt Count 253, MPV 8.5, Neut % (Auto) 62.9, Lymph % (Auto) 30.1, [place] % (Auto) 4.0, Eos % (Auto) 2.4, Baso % (Auto) 0.6, Neut # (Auto) 4.7, Lymph # (Auto) 2.3, [place] # (Auto) 0.3, Eos # (Auto) 0.2, Baso # (Auto) 0.1, PT 12.8 H, INR 1.20 H, Sodium 143, Potassium 4.0, Chloride 110 H, Carbon Dioxide 25, Anion Gap 12.0, BUN 20, Creatinine 2.00 H, Estimated Creat Clear 48, Estimated GFR 34 L, Est GFR ( Amer) 41 L, Glucose 127 H, Calcium 8.6 03/27/23 06:03: WBC 8.1, RBC 4.32 L, Hgb 13.3 L, Hct 40.9 L, MCV 94.7 H, MCH 30.8, MCHC 32.6, RDW 13.4, Plt Count 237, MPV 7.9, Neut % (Auto) 57.8, Lymph % (Auto) 30.3, [place] % (Auto) 7.0, Eos % (Auto) 4.3, Baso % (Auto) 0.7, Neut # (Auto) 4.7, Lymph # (Auto) 2.5, [place] # (Auto) 0.6, Eos # (Auto) 0.4, Baso # (Auto) 0.1, Sodium 143, Potassium 4.4, Chloride 111 H, Carbon Dioxide 26, Anion Gap 10.4, BUN 18, Creatinine 2.20 H, Estimated Creat Clear 42, Estimated GFR 30 L, Est GFR ( Amer) 37 L, Glucose 110 H, Calcium 8.5, Magnesium 1.4 L, Total Bilirubin 0.4, AST 37, ALT 28, Alkaline Phosphatase 36 L, Total Protein 7.1, Albumin 4.1, Globulin 3.0, Albumin/Globulin Ratio 1.4, Triglycerides 184 H, Cholesterol 205 H, LDL Cholesterol Direct 126.64, VLDL Cholesterol 37, HDL Cholesterol 33 L, Cholesterol/HDL Ratio 6.2 H I & O for Last 24 hours: Intake & Output 03/24/23 03/25/23 03/26/23 03/27/23 11:59 11:59 11:59 11:59 Intake Total 240 / 240 Output Total 1225 / 1225 Balance -985 / -985 Weight 196 lb 190 lb 1.6 oz Constitutional Constitutional: no acute distress *Routine Respiratory Exam Respiratory: Present CTA bilaterally *Routine Cardiovascular Exam Cardiovascular: Present RRR; Absent murmur, gallop or rubs Progress Note: A&P Assessment and plan (1) CAD (coronary artery disease): Status: Acute (2) Stented coronary artery: Status: Acute (3) CKD (chronic kidney disease), stage III: Status: Acute (4) Paroxysmal atrial fibrillation: Status: Acute (5) Tobacco use: Status: Chronic (6) HTN (hypertension): Status: Chronic (7) COPD (chronic obstructive pulmonary disease): Status: Chronic Assessment and Plan Assessment and Plan for All Diagnoses:: 1. CAD Status post 4 CORAL to RCA/PLVB, 03/26/2023 DAPT with aspirin/Effient 2. PAD Plan for lower extremity angiogram in 2 to 4 weeks Resume Xarelto therapy in the future (will hold for now due to Effient use). 3. PAF with CHADS-VASC score of 2 (HTN, Vascular Dz) Continue diltiazem and metoprolol 4. Hypertension Continue lisinopril/HCT, metoprolol and diltiazem 5. Tobacco use Cessation recommended 6. Hyperlipidemia Continue fenofibrate and simvastatin 7. COPD with KIMBERLEE overlap syndrome 8. CKD, stage III Stable with slight increase in Cr to 2.2 today Stable from a cardiovascular standpoint for discharge home. Home medication recommendations Aspirin 81 mg daily for 30 days then discontinue Effient 10 mg daily Hold Xarelto for now. Diltiazem CD1 120 mg daily Tricor 134 mg daily Simvastatin 20 mg daily Metoprolol XL 25 mg 1/2 tablet daily Lisinopril HCT 20/12.5 mg daily Follow-up in our office in 1 week with BMP on the day of appointment
--- NOTE | 2023-03-27 11:13 | HMH.PHAINT1 ---
Pharmacy Intervention Comments: DISCHARGE MEDICATION COUNSELING PROVIDED. DISCUSSED STOPPING XARELTO AND STARTING PRASUGREL (BLOOD THINNER, DAILY, BLEED/BRUISE RISK/APPEARANCE, BUMP HEAD = GO TO ER TO RULE OUT HEAD BLEED, SOB POSSIBLE). PATIENT VERBALIZED NO QUESTIONS AT THIS TIME.
--- NOTE | 2023-03-28 14:57 | CARE MANAGER ---
Contacted patient related to hospital discharge. He states he picked up his medication and is aware of follow up appointments. Denies questions or concerns. FAVIO Son
--- NOTE | 2023-05-07 19:55 | EXP.DC.SUM ---
General Admission date:: 03/26/23 Discharge date: 03/27/23 HPI HPI HPI: Mr. Brasher is a 62-year-old male with history of hypertension, CAD, CKD, obesity, tobacco use disorder, COPD who presented [facility] for elective cardiac catheterization. Status post cath with drug-eluting stent placement x4 to the RCA. Has chronic kidney disease, creatinine 2.1 today. Given severity of disease and contrast load, cardiology requested admission for gentle hydration and monitoring overnight. Medicine agreed to admit. He had an abnormal stress test that led to his heart cath today. Denies any shortness of breath, chest pain, nausea, vomiting, diarrhea, confusion. On my evaluation, patient has no complaints. Tracelet still in place on right wrist Hospital Course Hospital Course Hospital Course: Patient was seen and evaluated at the bedside on the day of discharge. Patient is stable for discharge. Patient wishes to be discharged. All patient questions were answered and patient was given time to ask questions. Patient was discharged in stable condition. Patient is a 62-year-old male with past medical history of CKD paroxysmal atrial fibrillation, hypertension, anemia COPD who presents to the hospital for vascular intervention by cardiology. Patient was admitted for observation postprocedure. Assessment PAD status post vascular intervention by cardiology CAD COPD Hypertension CKD patient cleared by cardiology for discharge, patient agreed to f/u with cardiology as OP, prescriptions sent Exam Data for Last 24 hours Vital signs and Labs for Last 24 Hours: Temp Pulse Resp BP Pulse Ox O2 Del Method 98.2 F 83 18 149/79 H 95 Room Air 03/27/23 07:33 03/27/23 08:00 03/27/23 07:33 03/27/23 07:33 03/27/23 08:00 03/27/23 08:00 I & O for Last 24 hours: Intake & Output 04/12/23 04/13/23 04/14/23 04/15/23 23:59 23:59 23:59 23:59 Intake Total 500 / 500 Output Total 0 / 0 Balance 500 / 500 0 / 0 Weight 86.183 kg 86.409 kg Constitutional Constitutional: no acute distress *Routine HEENT Exam Head: Present normocephalic Eye: Present EOMI and PERRL ENT: Present mucous membranes moist *Routine Neck Exam Neck: Present supple; Absent lymphadenopathy *Routine Respiratory Exam Respiratory: Present CTA bilaterally *Routine Cardiovascular Exam Cardiovascular: Present RRR *Routine Abdominal Exam Abdominal: Present soft and normoactive bowel sounds; Absent tenderness *Routine Extremities Exam Extremities: Absent cyanosis, clubbing or edema *Routine Skin Exam Skin: Present warm; Absent rash *Routine Neurological Exam Neurological: Present alert and oriented X3 DS: Diagnosis Discharge Diagnosis (1) CAD (coronary artery disease): Status: Acute Code(s): I25.10 - Atherosclerotic heart disease of [place] coronary artery without angina pectoris Qualifiers: Coronary Disease-Associated Artery/Lesion type: [place] artery [place] vs. transplanted heart: [place] heart Associated angina: with stable angina Qualified Code(s): I25.118 - Atherosclerotic heart disease of [place] coronary artery with other forms of angina pectoris Problem details: Patient is following with cardiology. (2) Stented coronary artery: Status: Inactive Code(s): Z95.5 - Presence of coronary angioplasty implant and graft (3) CKD (chronic kidney disease), stage III: Status: Acute Code(s): N18.30 - Chronic kidney disease, stage 3 unspecified Qualifiers: Chronic kidney disease stage 3 subtype: stage 3b (GFR 30-44) Qualified Code(s): N18.32 - Chronic kidney disease, stage 3b Problem details: Patient's estimated GFR has been running anywhere from 25-36 over the last 6 months. He has been fairly stable. Will follow closely. (4) Paroxysmal atrial fibrillation: Status: Inactive Code(s): I48.0 - Paroxysmal atrial fibrillation (5) Tobacco use:
== END 2023-03-27 12:39 | disposition home or self-care (01) ==
LOC: 2ND 12:20
PROVIDERS: Admitting Provider Internal Medicine Adolescent Medicine; PCP Emergency Medicine; Referring Provider Internal Medicine; Visit Provider Internal Medicine Adolescent Medicine
DX: I25.10 Atherosclerotic heart disease of native coronary artery without angina pectoris (principal); E78.5 Hyperlipidemia, unspecified; I12.9 Hypertensive chronic kidney disease with stage 1 through stage 4 chronic kidney disease, or unspecified chronic kidney disease; N18.9 Chronic kidney disease, unspecified; E66.9 Obesity, unspecified; Z68.29 Body mass index [BMI] 29.0-29.9, adult; J44.9 Chronic obstructive pulmonary disease, unspecified; I73.9 Peripheral vascular disease, unspecified; Z95.5 Presence of coronary angioplasty implant and graft; N18.32 Chronic kidney disease, stage 3b; I48.0 Paroxysmal atrial fibrillation; F17.210 Nicotine dependence, cigarettes, uncomplicated
CPT/HCPCS: 36415; 80048; 80053; 80061; 83735; 85025; 85347; 85610; 92928; 92929; 92978; 93454; 94640; 99152; 99153; C1725; C1760; C1769; C1876; C9600; C9601; G0378; J1644; Q9967

== ENCOUNTER → 2023-04-02 10:34 | Outpatient (CLI) | payer BC, SELFPAY ==
[2023-04-02 10:57] LABS: Microscopic, Urine URINE MICROSCOPIC (MICROSCOPIC)
[2023-04-02 11:52] LABS: Basophils % 0.5 % (0.1-2.0); Eosinophils # 0.2 K/mm3 (0.0-0.4); Eosinophils % 2.4 % (0.1-12.0); Hematocrit 42.2 % (42.0-52.0); Lymphocytes # 2.1 K/mm3 (0.7-4.5); Lymphocytes % 25.7 % (10-50); Mean Corpuscular HGB Conc 33.3 g/dL (31.8-35.4); Mean Corpuscular Hemoglobin 30.6 pg (27.0-31.2); Mean Corpuscular Volume 91.9 fl (80-94); Mean Platelet Volume 7.4 fl (7.4-10.4); Monocytes # 0.4 K/mm3 (0.1-1.0); Neutrophils # 5.4 K/mm3 (1.8-7.8); Neutrophils % 66.4 % (37.0-80.0); Platelet Count 310 K/mm3 (142-424); Red Blood Count 4.59 M/mm3 (4.60-6.20); White Blood Count 8.1 K/mm3 (4.8-10.8)
[2023-04-02 12:32] LABS: Appearance,Urine CLEAR (Clear); Bilirubin,Urine Negative (Negative); Blood, Urine Negative (Negative); Color,Urine YELLOW (Yellow); Glucose,Urine (UA) Negative (Negative); Ketones,Urine Negative (Negative); Leukocyte Esterase,Urine Negative (Negative); Nitrate,Urine Negative (Negative); Protein,Urine Negative (Negative); Specific Gravity, Urine 1.015 (1.005-1.030); Urobilinogen,Urine 0.2 EU/dl (0.2)
[2023-04-02 12:36] LABS: Albumin Level 4.6 g/dl (3.5-5.0); Anion Gap 19.7 mEq/L (5-15); Blood Urea Nitrogen 33 mg/dl (9-20); Calcium 9.9 mg/dl (8.4-10.2); Carbon Dioxide 21 mmol/L (22.0-30.0); Chloride 101 mmol/L (98-107); Estimated Glomerular Filt Rate 26 ml/min (>60); GFR (African American) 32 ML/MIN (>60); Glucose 109 mg/dl (74-100); Phosphorous 4.2 mg/dl (2.5-4.5); Potassium 4.7 mmoL/L (3.5-5.1); Sodium 137 mmol/L (136-145)
[2023-04-02 13:14] LABS: Bacteria,Urine Trace /lpf; Squamous Epithelial Cell,Urine Occasional #/hpf (0-5)
[2023-04-02 15:20] LABS: Creatinine,Urine Random 125 mg/dL (Not Estab.)
== END ==
PROVIDERS: PCP Emergency Medicine; Visit Provider Internal Medicine Nephrology
DX: N28.9 Disorder of kidney and ureter, unspecified (principal)
CPT/HCPCS: 36415; 80069; 81001; 82570; 84155; 85025

== ENCOUNTER → 2023-04-04 09:55 | Outpatient (CLI) | payer BC, SELFPAY ==
--- NOTE | 2023-04-04 09:59 | US_ITS ---
FINAL REPORT TECHNIQUE: Ultrasound images of the kidneys and bladder were obtained. CLINICAL HISTORY: RENAL INSUFFICIENCY COMPARISON: None FINDINGS: The right kidney measures 9.8 cm in length. It is normal in echogenicity. There is no hydronephrosis. The left kidney measures 8.5 cm in length. It is normal in echogenicity. There is no hydronephrosis. IMPRESSION: No hydronephrosis or mass identified. Reviewed, Interpreted and Dictated by Ira Hein MD Transcribed by Ivette Rabago Authenticated and [facility]
== END ==
PROVIDERS: PCP Emergency Medicine; Visit Provider Internal Medicine Nephrology
DX: N28.9 Disorder of kidney and ureter, unspecified (principal)
CPT/HCPCS: 76770

== ENCOUNTER 2023-04-13 12:54 | Observation (INO) | payer BC, SELFPAY ==
[2023-04-13] VITALS (18 sets, daily range): BP systolic 82–149; BP diastolic 49–86; PULSE 64–84; RESP 16–20; TEMP 36.6; O2SAT 94–100; BMI 31.3; BMI 30.7
--- NOTE | 2023-04-13 07:20 | IR_ITS ---
APPROVED REPORT Patient Location: Outpatient Drill Setup Operator: DYLON Smith RT (R) PROCEDURES Right radial arterial access Catheter placement in the right common external iliac artery Right external iliac artery antegrade angiogram with unilateral runoff to the right foot Catheter placed in the left external iliac artery Left external iliac artery antegrade angiogram with unilateral runoff to the left foot Catheter placed into the distal abdominal aorta Distal abdominal aortography Right femoral arterial angiogram Right femoral artery retrograde angiogram Stent deployment to the distal abdominal aorta extending to the right common iliac artery Stent deployment to the distal abdominal aorta extending into the left common iliac artery Reconstruction of the distal abdominal aortic and iliac artery bifurcation INDICATION Abnormal NEETU, Bilateral common iliac artery stenosis, [place] claudication class III Informed consent was obtained prior to the procedure. COMPLICATIONS NONE Estimated Blood Loss: LESS THAN 10 ML TECHNIQUE 1% lidocaine used to anesthetize the right anterior aspect of the right wrist. The right radial artery was accessed via the central technique and an arterial cocktail using 5000U heparin, 2.5 mg verapamil, 1mg lidocaine and 800mcg nitroglycerin into the right radial sheath intra-arterially. A PV multi curve catheter was then placed into the left external iliac artery via the right radial sheath and iliofemoral angiography was performed with unilateral runoff to the foot. This procedure was repeated in the right external iliac artery and right external iliac artery antegrade angiography was performed. The catheter was then pulled back to the distal abdominal aorta with distal abdominal aortography was performed. Following this 1% lidocaine was used anesthetize the right groin the right femoral artery is accessed via the [place] technique. 6 [place] sheath is placed in the right femoral artery and therapeutic Was administered with therapeutic ACT. A long Amplatz Super Stiff wire was placed into the left common femoral artery under fluoroscopic guidance via the PV multi curve. The PV multi curve catheter was then removed. A 23 cm Brite tip 6 [place] sheath was then exchanged for a short 6 [place] sheath in the right femoral artery. Two 8 mm x 57 mm balloon mounted bare-metal stents were deployed in the distal abdominal aorta 1 extending into the right common iliac artery and the other one extended into the left common iliac artery. Both were deployed simultaneously at 12 abel. There is there was a geographical mass with the right common iliac artery stent in which it was approximately 10 mm lower in the distal abdominal aorta then the left stent. Because of this an additional 8 mm x 17 mm balloon mounted bare-metal stent was deployed in the distal abdominal aorta extending into the right common iliac artery while the left common iliac artery balloon was deployed. The 2 were deployed simultaneously. Excellent angiographic results were obtained. At the end of the procedure the apparatus was removed the right femoral groin was reprepped closure changed sheath was removed and hemostasis was achieved using Perclose device. The right radial sheath was removed and good hemostasis was achieved using TR band. Patient was transferred to the postop holding in stable condition ANGIOGRAPHIC RESULTS Distal abdominal aorta is mildly atheromatous Right common iliac artery has an ostial 60 to 70% followed by a stent in the right common iliac artery which extends into the right external iliac artery. The stent is widely patent with excellent apposition and expansion and excellent proximal distal transitioning. The right internal iliac artery is small but patent.
[2023-04-13 08:33] LABS: Basophils # 0.1 K/mm3 (0-0.2); Basophils % 0.7 % (0.1-2.0); Eosinophils # 0.4 K/mm3 (0.0-0.4); Eosinophils % 3.9 % (0.1-12.0); Hematocrit 45.5 % (42.0-52.0); Hemoglobin 15.1 g/dL (14.1-18.0); Lymphocytes # 2.5 K/mm3 (0.7-4.5); Lymphocytes % 27.3 % (10-50); Mean Corpuscular HGB Conc 33.1 g/dL (31.8-35.4); Mean Corpuscular Volume 93.5 fl (80-94); Mean Platelet Volume 8.4 fl (7.4-10.4); Monocytes # 0.5 K/mm3 (0.1-1.0); Monocytes % 5.7 % (1.7-9.3); Neutrophils # 5.6 K/mm3 (1.8-7.8); Neutrophils % 62.4 % (37.0-80.0); Platelet Count 303 K/mm3 (142-424); Red Blood Count 4.87 M/mm3 (4.60-6.20); Red Cell Distribution Width 13.1 % (11.5-17.5)
[2023-04-13 08:47] LABS: Anion Gap 15.8 mEq/L (5-15); Blood Urea Nitrogen 25 mg/dl (9-20); Calcium 9.8 mg/dl (8.4-10.2); Carbon Dioxide 24 mmol/L (22.0-30.0); Chloride 107 mmol/L (98-107); Creatinine Clearance Estimated 45 mL/min (50-200); Estimated Glomerular Filt Rate 32 ml/min (>60); GFR (African American) 39 ML/MIN (>60); Glucose 100 mg/dl (74-100); Potassium 4.8 mmoL/L (3.5-5.1); Sodium 142 mmol/L (136-145)
--- NOTE | 2023-04-13 12:46 | SUR.PHASEII ---
Dr Cheng called hospitalist 3 times,no answer, left detailed message for admission of patient due to possible contrast nephropathy. 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
[2023-04-13 14:40] LABS: CATHL Activated Clotting Time 381 SEC (74-125)
--- NOTE | 2023-04-13 18:36 | EXP.HP ---
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 Patient was admitted for observation postprocedure. [facility] Disclaimer: The information contained in this section may have been updated after the patient was seen, as this information can be updated by other users. 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 PAD (peripheral artery disease) Pneumonia Screening for lung cancer Sleep apnea Smoking greater than 30 pack years Tobacco abuse counseling Tobacco abuse disorder Surgical History History of cardiac cath History of colonoscopy History of coronary artery stent placement Family History Other Cancer Diabetes Social History (Updated 04/13/23 @ 14:38 by Amalia Hope RN) Smoking Status: Current every day smoker tobacco type: cigarettes packs per day: 1 alcohol intake: former substance use type: denies use current occupational status: unemployed Travel in the last 8 weeks: Inside the [place] household members: significant other housing: house current occupational exposures/hazards: No caffeine: Yes Review of Systems Review of Systems Review of systems:: pertinent systems reviewed and negative unless documented below Meds Home Medications and Allergies Home Medications Medication Instructions Recorded Confirmed Type nicotine (polacrilex) 2 mg gum 2 mg buccal Q2H PRN nicotine 03/14/22 04/13/23 Rx cravings #396 ea lisinopril 20 1 tab PO DAILY bp #90 tabs 07/24/22 04/13/23 Rx mg-hydrochlorothiazide 12.5 mg tablet diltiazem HCl 120 mg 120 mg PO DAILY 10/09/22 04/13/23 History capsule,extended release 24 hr fluticasone propionate 110 1 puff inhalation BID 90 days #12 01/23/23 04/13/23 Rx mcg/actuation HFA aerosol inhaler grams (Flovent HFA) fenofibrate nanocrystallized 145 145 mg PO DAILY 03/22/23 04/13/23 History mg tablet hydroxyzine pamoate 25 mg capsule 25 mg PO BIDP PRN Anxiety 03/22/23 04/13/23 History simvastatin 20 mg tablet 20 mg PO DAILY 03/22/23 04/13/23 History aspirin 81 mg tablet,delayed 81 mg PO DAILY 03/26/23 04/13/23 History release ipratropium 0.5 mg-albuterol 3 mg 3 ml inhalation QID PRN Shortness 03/26/23 04/13/23 History (2.5 mg base)/3 mL nebulization Of Breath soln metoprolol succinate 25 mg 12.5 mg PO DAILY 03/26/23 04/13/23 History tablet,extended release 24 hr tiotropium 2.5 mcg-olodaterol 2.5 2 puff inhalation DAILY 03/26/23 04/13/23 History mcg/actuation mist for inhalation (Stiolto Respimat) trazodone 100 mg tablet 100 mg PO HS 03/26/23 04/13/23 History prasugrel 10 mg tablet 10 mg PO DAILY #30 tabs 03/27/23 04/13/23 Rx albuterol sulfate 90 mcg/actuation See Rx Instructions .Route 03/29/23 04/13/23 Rx aerosol inhaler (Ventolin HFA) .COMPLEX #18 grams clonazepam 0.5 mg tablet (Klonopin) 0.5 mg PO TID #90 tabs 04/03/23 04/13/23 Rx gabapentin 400 mg capsule 400 mg PO BID #60 caps 04/03/23 04/13/23 Rx hydrocodone 10 mg-acetaminophen 1 tab PO Q8H Pain #90 tabs 04/03/23 04/13/23 Rx 325 mg tablet nicotine 21 mg/24 hr daily 1 patch transdermal DAILY #28 ea 04/03/23 04/13/23 Rx transdermal patch New Prescriptions to Start Prescriptions: Allergmini
--- NOTE | 2023-04-13 22:08 | PC.NURSE ---
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
[2023-04-14] VITALS: PULSE 70
[2023-04-14 04:00] VITALS: BP 100/59; PULSE 70; PULSE 78; RESP 18; TEMP 36.4; O2SAT 96; BMI 30.6
[2023-04-14 08:00] VITALS: BP 156/94; PULSE 80; PULSE 90; RESP 24; TEMP 36.6; O2SAT 99
[2023-04-14 08:05] LABS: Basophils # 0.1 K/mm3 (0-0.2); Basophils % 1.2 % (0.1-2.0); Eosinophils # 0.3 K/mm3 (0.0-0.4); Eosinophils % 3.7 % (0.1-12.0); Hematocrit 42.8 % (42.0-52.0); Lymphocytes # 2.1 K/mm3 (0.7-4.5); Lymphocytes % 30.9 % (10-50); Mean Corpuscular HGB Conc 31.3 g/dL (31.8-35.4); Mean Corpuscular Hemoglobin 30.8 pg (27.0-31.2); Mean Corpuscular Volume 98.4 fl (80-94); Mean Platelet Volume 7.9 fl (7.4-10.4); Monocytes # 0.6 K/mm3 (0.1-1.0); Monocytes % 8.4 % (1.7-9.3); Neutrophils # 3.8 K/mm3 (1.8-7.8); Neutrophils % 55.8 % (37.0-80.0); Platelet Count 248 K/mm3 (142-424); Red Blood Count 4.35 M/mm3 (4.60-6.20); Red Cell Distribution Width 12.8 % (11.5-17.5); White Blood Count 6.7 K/mm3 (4.8-10.8)
[2023-04-14 08:17] LABS: Anion Gap 17.5 mEq/L (5-15); Blood Urea Nitrogen 22 mg/dl (9-20); Calcium 8.4 mg/dl (8.4-10.2); Carbon Dioxide 19 mmol/L (22.0-30.0); Chloride 107 mmol/L (98-107); Creatinine Clearance Estimated 51 mL/min (50-200); Estimated Glomerular Filt Rate 38 ml/min (>60); GFR (African American) 46 ML/MIN (>60); Glucose 113 mg/dl (74-100); Potassium 4.5 mmoL/L (3.5-5.1); Sodium 139 mmol/L (136-145)
[2023-04-14 09:17] VITALS: O2SAT 95
[2023-04-14 11:07] LABS: Hemoglobin 13.4 g/dL (14.1-18.0)
[2023-04-14 12:00] VITALS: BP 155/57; PULSE 107; RESP 20; TEMP 36.6; O2SAT 95
--- NOTE | 2023-04-15 19:15 | EXP.DC.SUM ---
General Admission date:: 04/13/23 Discharge date: 04/14/23 HPI HPI HPI: Patient is a 62-year-old male with past medical history of CKD paroxysmal atrial fibrillation, hypertension, anemia COPD who presents to the hospital for vascular intervention by cardiology. Patient was admitted for observation postprocedure. Hospital Course Hospital Course Hospital Course: Patient was seen and evaluated at the bedside on the day of discharge. Patient is stable for discharge. Patient wishes to be discharged. All patient questions were answered and patient was given time to ask questions. Patient was discharged in stable condition. Patient is a 62-year-old male with past medical history of CKD paroxysmal atrial fibrillation, hypertension, anemia COPD who presents to the hospital for vascular intervention by cardiology. Patient was admitted for observation postprocedure. Assessment PAD status post vascular intervention by cardiology CAD COPD Hypertension CKD patient cleared by cardiology for discharge, patient agreed to f/u with cardiology as OP, prescriptions sent Exam Data for Last 24 hours Vital signs and Labs for Last 24 Hours: Temp Pulse Resp BP Pulse Ox O2 Del Method 97.8 F 107 H 20 155/57 H 95 Room Air 04/14/23 12:00 04/14/23 12:00 04/14/23 12:00 04/14/23 12:00 04/14/23 12:00 04/14/23 12:00 I & O for Last 24 hours: Intake & Output 04/12/23 04/13/23 04/14/23 04/15/23 23:59 23:59 23:59 23:59 Intake Total 500 / 500 Output Total 0 / 0 Balance 500 / 500 0 / 0 Weight 86.183 kg 86.409 kg Constitutional Constitutional: no acute distress *Routine HEENT Exam Head: Present normocephalic Eye: Present EOMI and PERRL ENT: Present mucous membranes moist *Routine Neck Exam Neck: Present supple; Absent lymphadenopathy *Routine Respiratory Exam Respiratory: Present CTA bilaterally *Routine Cardiovascular Exam Cardiovascular: Present RRR *Routine Abdominal Exam Abdominal: Present soft and normoactive bowel sounds; Absent tenderness *Routine Extremities Exam Extremities: Absent cyanosis, clubbing or edema *Routine Skin Exam Skin: Present warm; Absent rash *Routine Neurological Exam Neurological: Present alert and oriented X3 DS: Diagnosis Discharge Diagnosis (1) CKD (chronic kidney disease), stage III: Status: Acute Code(s): N18.30 - Chronic kidney disease, stage 3 unspecified Qualifiers: Chronic kidney disease stage 3 subtype: stage 3b (GFR 30-44) Qualified Code(s): N18.32 - Chronic kidney disease, stage 3b (2) CAD (coronary artery disease): Status: Acute Code(s): I25.10 - Atherosclerotic heart disease of [place] coronary artery without angina pectoris Qualifiers: Coronary Disease-Associated Artery/Lesion type: [place] artery [place] vs. transplanted heart: [place] heart Associated angina: with stable angina Qualified Code(s): I25.118 - Atherosclerotic heart disease of [place] coronary artery with other forms of angina pectoris (3) Claudication of both lower extremities: Status: Acute Code(s): I73.9 - Peripheral vascular disease, unspecified Meds Home Medications and Allergies Home Medications Medication Instructions Recorded Confirmed Type nicotine (polacrilex) 2 mg gum 2 mg buccal Q2H PRN nicotine 03/14/22 04/13/23 Rx cravings #396 ea diltiazem HCl 120 mg 120 mg PO DAILY Blood pressure 10/09/22 04/13/23 History capsule,extended release 24 hr fenofibrate nanocrystallized 145 145 mg PO DAILY Lipids 03/22/23 04/13/23 History mg tablet hydroxyzine pamoate 25 mg capsule 25 mg PO BIDP PRN Anxiety 03/22/23 04/13/23 History simvastatin 20 mg tablet 20 mg PO HS Cholesterol 03/22/23 04/14/23 History aspirin 81 mg tablet,delayed 81 mg PO DAILY Circulation 03/26/23 04/13/23 History release ipratropium 0.5 mg-albuterol 3 mg 3 ml inhalation QIDP PRN Shortness 03/26/23 04/14/23 History (2.5 mg base)/3 mL nebulization
--- NOTE | 2023-04-16 14:44 | CARE MANAGER ---
Contacted patient related to hospital discharge. 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 Transferred him to cardiology office. FAVIO Son
== END 2023-04-14 12:50 | disposition home or self-care (01) ==
LOC: 2ND 12:54
PROVIDERS: Internal Medicine; Admitting Provider Internal Medicine; PCP Emergency Medicine; Visit Provider Internal Medicine
DX: E78.5 Hyperlipidemia, unspecified; I25.10 Atherosclerotic heart disease of native coronary artery without angina pectoris; J44.9 Chronic obstructive pulmonary disease, unspecified; I12.9 Hypertensive chronic kidney disease with stage 1 through stage 4 chronic kidney disease, or unspecified chronic kidney disease; I48.0 Paroxysmal atrial fibrillation; N18.32 Chronic kidney disease, stage 3b; I70.203 Unspecified atherosclerosis of native arteries of extremities, bilateral legs; I77.1 Stricture of artery
CPT/HCPCS: 36415; 37221; 80048; 85025; 85347; 94640; 99152; 99153; C1725; C1760; C1769; C1876; C1894; G0378; J1644; Q9966

== ENCOUNTER → 2023-05-01 23:00 | Outpatient (CLI) | payer BC, SELFPAY ==
[2023-05-01 19:33] LABS: Creatinine,Urine Random 127 mg/dL (Not Estab.)
[2023-05-01 19:38] LABS: Microalbumin/Creatinine Ratio 10.3
[2023-05-02 11:21] LABS: Prostate Specific Ag Screen 2.3 ng/ml (0.0-4.0)
== END ==
LOC: LAB.DROPOF 05-02 00:09
PROVIDERS: PCP Internal Medicine; Visit Provider Internal Medicine
DX: E11.9 Type 2 diabetes mellitus without complications (principal); Z12.5 Encounter for screening for malignant neoplasm of prostate
CPT/HCPCS: 82043; 82570; G0103

== ENCOUNTER 2023-06-28 22:19 | Outpatient (CLI) | payer BC, SELFPAY ==
[2023-06-28 18:55] LABS: Basophils # 0.1 K/mm3 (0-0.2); Basophils % 0.6 % (0.1-2.0); Eosinophils # 0.3 K/mm3 (0.0-0.4); Eosinophils % 3.9 % (0.1-12.0); Hematocrit 38.8 % (42.0-52.0); Hemoglobin 12.6 g/dL (14.1-18.0); Lymphocytes # 2.6 K/mm3 (0.7-4.5); Lymphocytes % 34.1 % (10-50); Mean Corpuscular HGB Conc 32.6 g/dL (31.8-35.4); Mean Corpuscular Hemoglobin 29.9 pg (27.0-31.2); Mean Corpuscular Volume 91.7 fl (80-94); Mean Platelet Volume 9.1 fl (7.4-10.4); Monocytes # 0.7 K/mm3 (0.1-1.0); Monocytes % 9.8 % (1.7-9.3); Neutrophils # 3.9 K/mm3 (1.8-7.8); Neutrophils % 51.5 % (37.0-80.0); Platelet Count 252 K/mm3 (142-424); Red Blood Count 4.23 M/mm3 (4.60-6.20); Red Cell Distribution Width 13.4 % (11.5-17.5); White Blood Count 7.6 K/mm3 (4.8-10.8)
[2023-06-28 19:15] LABS: Microalbumin/Creatinine Ratio 17.3
[2023-06-28 19:16] LABS: Creatinine,Urine Random 94 mg/dL (Not Estab.)
[2023-06-28 19:50] LABS: Vitamin B12 297 pg/mL (239-931)
== END 2023-06-28 23:59 ==
LOC: LAB.DROPOF 22:20
PROVIDERS: PCP Internal Medicine; Visit Provider Internal Medicine
DX: E11.9 Type 2 diabetes mellitus without complications (principal); R53.83 Other fatigue
CPT/HCPCS: 82043; 82570; 82607; 85025